=== PATIENT | male | born 1965 | race Caucasian/White ===

== ENCOUNTER → 2020-09-11 09:54 | Day surgery (SDC) | payer MEDICARE, MEDICAID, SELFPAY ==
[2020-09-11] VITALS (9 sets, daily range): BP systolic 106–125; BP diastolic 74–85; PULSE 67–73; RESP 18; TEMP 36.2–36.7; O2SAT 94–100
[2020-09-11 11:05] LABS: Hematocrit 21.4 % (42.0-52.0)
[2020-09-11 11:06] LABS: Hemoglobin 6.2 g/dL (11.7-16.6)
[2020-09-11 11:11] LABS: INR 3.18 (0.8-1.2)
[2020-09-11] MEDS: diphenhydrAMINE 25 mg Capsule PO (11:45)
[2020-09-11] MEDS: acetaminophen 325 mg Tablet 650 MG PO (11:45)
[2020-09-11] MEDS: FUROsemide 10 mg/mL SDV 2mL 20 MG IVP (14:45)
== END ==
PROVIDERS: PCP Internal Medicine; Visit Provider Internal Medicine
DX: D64.9 Anemia, unspecified (principal); I50.9 Heart failure, unspecified
CPT/HCPCS: 36415; 36430; 85014; 85018; 85610; 86850; 86900; 86920; 96374; 96375; J1940; P9016

== ENCOUNTER 2020-09-21 14:02 | Emergency (ER) | payer MEDICARE, MEDICAID, SELFPAY ==
[2020-09-21 14:03] VITALS: BP 119/79; PULSE 86; RESP 20; TEMP 37; O2SAT 97; BMI 41.5
--- NOTE | 2020-09-21 15:02 | ED_ITS ---
HPI - General Adult General: Chief complaint: General Medical Stated complaint: pelvic/ groin swelling Time Seen by Provider: 09/21/20 14:09 Source: patient Mode of arrival: ambulatory History of Present Illness: HPI narrative: Patient is a 55-year-old gentleman with a history of congestive heart failure, he has an LVAD. He recently had a hemoglobin of 6.2 about 10 days ago. He states that for the last week he has been having watery stools, describes as dirty water. Multiple episodes every day. He has lower abdominal pain, he denies any fever, nausea or vomiting. He has taken an antidiarrheal pill which has slowed down his diarrhea. Associated symptoms: Deny dyspnea, headache(s), nausea, rash, palpitations or vomiting Review of Systems General: Reports: 10 or more systems reviewed and unremarkable except in HPI and below Const: Denies: fever(s), chills or body aches Eyes: Denies: change in vision or blurry vision ENMT: Denies: throat pain, enlarged tonsils, odynophagia, hoarseness, mouth pain or swelling of lips/tongue Card: Denies: palpitations, irregular heart rhythm, edema or swelling of feet/ankles Resp: Denies: dyspnea, productive cough or non-productive cough GI: Reports: diarrhea; Denies: abdominal pain, nausea or vomiting : Denies: flank pain, dysuria, urinary frequency, urinary urgency or urinary hesitancy Musc: Denies: neck pain, back pain or extremity swelling Skin/Breast: Denies: rash, pruritus or erythema Neuro: Denies: headache(s), numbness in extremities or weakness in extremities Endo: Denies: polyuria, polydipsia or tired all the time PFSH ED PFSH: Medical History FH: cholecystectomy Heart disease High blood pressure Surgical History History of left ventricular assist device (LVAD) S/P triple vessel bypass Physical Exam Const: COMMON NORMALS: no acute distress, average body habitus, patient oriented x3, no limitations, healthy appearing, alert and well nourished HENMT: COMMON NORMALS: normocephalic, atraumatic and moist oral mucous membranes HEAD & SCALP: normocephalic and atraumatic Neck/C-Spine: COMMON NORMALS: no meningeal signs and no JVD Resp: COMMON NORMALS: normal respiratory effort, No retractions, No use of accessory muscles, clear to auscultation bilaterally and percussion normal AUSCULTATION: clear to auscultation bilaterally PERCUSSION: percussion normal Cardio: COMMON NORMALS: no JVD, regular rate, regular rhythm, S1 normal heart sound present, S2 normal heart sound present, No gallops present (Cardio), No clicks present (Cardio), No murmurs present (Cardio), No rub (Cardio) and Peripheral pulses 2+ throughout RATE: regular rate RHYTHM: regular rhythm HEART SOUNDS: S1 normal heart sound present and S2 normal heart sound present PERIPHERAL PULSES: Peripheral pulses 2+ throughout GI: COMMON NORMALS: Soft to palpation, non-tender, No hepatosplenomegaly present, no masses and no bruits INSPECTION: Yes Abdominal wall edema, Yes Anasarca and Yes abdominal distension PALPATION: Yes Soft to palpation and Yes No hepatosplenomegaly present Extremity: COMMON NORMALS: normal to inspection, full ROM, capillary refill normal, no calf tenderness and no pedal edema Neuro: COMMON NORMALS: patient oriented x3 SENSORIUM/ORIENTATION: Yes alert MENINGEAL SIGNS: Yes no meningeal signs Skin: COMMON NORMALS: no rashes or lesions noted, no wounds, turgor normal, no jaundice, no petechiae and no mottling GENERAL SKIN EXAM: no rashes or lesions noted and turgor normal Course Reevaluation(s): Reevaluation #1: Discussed his labs and imaging findings with him. Negative for acute findings. He has supratherapeutic INR and is advised to hold warfarin for 2 days before resuming. He is advised to double the dose of bumex for Time: 19:00 Reevaluation #2: Patient is unable to wait for his blanket cutting machine operator to call back. He wants to be discharged home. He said he will call tomorrow. Once again he is advised to double the dose of his Bumex for 3 days. Time: 20:24 Consultations: Consultation #1: The blanket cutting machine operator for this patient called back from [facility] in [place]. He knows this patient very well and he says he advised to double his Bumex was what he would have recommended. He will contact the patient and do a telemedicine visit with him. Time: 21:08 Vital Signs: Vital signs: Vital Signs Temperature 98.6 F 09/21/20 14:03 Pulse Rate 91 09/21/20 20:48 Respiratory Rate 18 09/21/20 20:48 Blood Pressure 152/121 09/21/20 20:48 Pulse Oximetry 100 09/21/20 20:48 MDM - General Adult MDM Narrative: Medical decision making narrative: 55-year-old gentleman with a history of congestive heart failure who presents with increased leg and scrotal swelling as well as diarrhea. Diarrhea has resolved now after he took some antidiarrheal medicines yesterday. Evaluation in the emergency department is not suggestive of an infectious cause of diarrhea. He is not in any distress, is not requiring oxygen supplementation, Has no difficulty breathing. He is advised to double the dose of his Bumex and follow-up with his blanket cutting machine operator and primary care provider. Medical Records: Attestation: I reviewed the patient's medical records. Lab Data: Attestation: I reviewed the patient's lab results. Labs: Lab Results 09/21/20 09/21/20 09/21/20 Range/Units 16:50 16:50 16:50 WBC 7.5 (4.0-10.0) 10^3/ uL RBC 3.46 L (4.1-5.3) 10^6/u L Hgb 7.6 L (11.7-16.6) g/dL Hct 26.2 L (42.0-52.0) % MCV 75.7 L (80-94) fL MCH 22.0 L (28.0-34.0) pg MCHC 29.0 L (30.0-36.0) g/dL RDW 20.0 H (12.1-15.1) % Plt Count 205 (130-400) 10^3/c mm MPV 9.5 (7.4-10.4) fL Neut % (Auto) 88.5 % Lymph % (Auto) 4.2 % Simpson % (Auto) 6.4 % Eos % (Auto) 0.3 % Baso % (Auto) 0.1 % Neut # (Auto) 6.66 (1.8-7.7) 10^3/u L Lymph # (Auto) 0.3 L (0.8-4.8) 10^3/u L Simpson # (Auto) 0.5 (0.2-0.9) 10^3/u L Eos # (Auto) 0.0 (0.0-0.8) 10^3/u L Baso # (Auto) 0.0 (0.0-0.1) 10^3/u L Nucleated RBC % (a uto) 0 % Nucleated RBCs # 0.0 /100WBC PT (12.1-14.9) SECO NDS INR (0.8-1.2) Sodium 133 L (136-145) mmol/L Potassium 3.0 L (3.5-5.1) mmol/L Chloride 98 (98-107) mmol/L Carbon Dioxide 26 (22-29) mmol/L Anion Gap 12.0 (5-19) BUN 42 H (6-20) mg/dL Creatinine 1.4 H (0.7-1.2) mg/dL GFR Calculation 53.0 L (90-130) mL/min Glucose 100 (65-115) mg/dL Calculated Osmolal ity 287 (285-295) mOsm/k g Lactate 0.7 (0.5-2.2) mmol/L Calcium 7.2 L (8.5-10.5) mg/dL Total Bilirubin 0.5 (0.15-1.2) mg/dL AST 30 (0-40) U/L ALT 15 (0-41) U/L Alkaline Phosphata se 106 (40-130) IU/L C-Reactive Protein 6.4 H (0.0-4.9) mg/L Total Protein 5.1 L (6.6-8.7) g/dL Albumin 2.3 L (3.5-5.2) g/dL Globulin 2.8 (1.3-4.6) g/dL Urine Color (Yellow) Urine Appearance (CLEAR) Urine pH (5-7) Ur Specific Gravit y (1.005-1.030) Urine Protein (Negative) Urine Glucose (UA) (Normal) Urine Ketones (Negative) Urine Blood (Negative) Urine Nitrate (Negative) Urine Bilirubin (Negative) Urine Urobilinogen (Negative) mg/dL Ur Leukocyte Yessenia ase (Negative) Urine RBC (0-2) /hpf Urine WBC (0-5) /hpf Ur Squamous Epith Cells (0-5) /hpf Amorphous Sediment Urine Bacteria (NONE) /hpf 09/21/20 09/21/20 Range/Units 16:50 17:54 WBC (4.0-10.0) 10^3/ uL RBC (4.1-5.3) 10^6/u L Hgb (11.7-16.6) g/dL Hct (42.0-52.0) % MCV (80-94) fL MCH (28.0-34.0) pg MCHC (30.0-36.0) g/dL RDW (12.1-15.1) % Plt Count (130-400) 10^3/c mm MPV (7.4-10.4) fL Neut % (Auto) % Lymph % (Auto) % Simpson % (Auto) % Eos % (Auto) % Baso % (Auto) % Neut # (Auto) (1.8-7.7) 10^3/u L Lymph # (Auto) (0.8-4.8) 10^3/u L Simpson # (Auto) (0.2-0.9) 10^3/u L Eos # (Auto) (0.0-0.8) 10^3/u L Baso # (Auto) (0.0-0.1) 10^3/u L Nucleated RBC % (a uto) % Nucleated RBCs # /100WBC PT 34.10 H (12.1-14.9) SECO NDS INR 3.22 H (0.8-1.2) Sodium (136-145) mmol/L Potassium (3.5-5.1) mmol/L Chloride (98-107) mmol/L Carbon Dioxide (22-29) mmol/L Anion Gap (5-19) BUN (6-20) mg/dL Creatinine (0.7-1.2) mg/dL GFR Calculation (90-130) mL/min Glucose (65-115) mg/dL Calculated Osmolal ity (285-295) mOsm/k g Lactate (0.5-2.2) mmol/L Calcium (8.5-10.5) mg/dL Total Bilirubin (0.15-1.2) mg/dL AST (0-40) U/L ALT (0-41) U/L Alkaline Phosphata se (40-130) IU/L C-Reactive Protein (0.0-4.9) mg/L Total Protein (6.6-8.7) g/dL Albumin (3.5-5.2) g/dL Globulin (1.3-4.6) g/dL Urine Color Yellow (Yellow) Urine Appearance Clear (CLEAR) Urine pH 7 (5-7) Ur Specific Gravit y 1.005 (1.005-1.030) Urine Protein Trace (Negative) Urine Glucose (UA) Norm (Normal) Urine Ketones Negative (Negative) Urine Blood 3+ H (Negative) Urine Nitrate Negative (Negative) Urine Bilirubin Neg (Negative) Urine Urobilinogen Norm (Negative) mg/dL Ur Leukocyte Yessenia ase Negative (Negative) Urine RBC 0-4 H (0-2) /hpf Urine WBC 0-4 H (0-5) /hpf Ur Squamous Epith Cells 0-4 H (0-5) /hpf Amorphous Sediment Not Reportable Urine Bacteria Trace (NONE) /hpf Imaging Data^: CT Abd/Pel: Attestation: I personally reviewed and interpreted this imaging study as follows: Radiologist's impression: [place] [address] CT Scan Report Signed Patient: Aniceto Ayala AUnit #: [id number] : 1965Acct#:[id number] Age/Sex: 55 / MADM Date: 09/21/20 Loc: ERRoom/Bed: Attending Dr: Ordering Provider/Ordering MD: Jose Guadalupe Cotto MD, [facility] Date of Service: 09/21/20 Procedure(s): CT abdomen pelvis [facility] [id number] Accession Number(s): [id number] Report Number: [id number] PROCEDURE INFORMATION: Exam: CT Abdomen And Pelvis Without Contrast Exam date and time: 09/21/2020 6:26 PM Age: 55 years old Clinical indication: Abdominal pain; Localized; Prior surgery; Surgery date: 6+ months; Surgery type: Gb, lvad; Patient HX: C/O lower abd pain w diarrhea and groin swelling; Additional info: Abdominal pain, diarrhea TECHNIQUE: Imaging protocol: Computed tomography of the abdomen and pelvis without contrast. Radiation optimization: All CT scans at this facility use at least one of these dose optimization techniques: automated exposure control; mA and/or kV adjustment per patient size (includes targeted exams where dose is matched to clinical indication); or iterative reconstruction. COMPARISON: No relevant prior studies available. RADIATION DOSE METRICS: Total DLP (mGy-cm): 1877.36 FINDINGS: Tubes, catheters and devices: LVAD and AICD leads noted. Lungs: No significant abnormaility demonstrated. Liver: Liver is normal in size. No focal hepatic lesion demonstrated. Liver margin is slightly irregular, suggesting possible hepatic cirrhosis. Gallbladder and bile ducts: The gallbladder is surgically absent. Pancreas: Unremarkable. No ductal dilation. Spleen: Moderate splenomegaly noted. Spleen measures 17 cm in length. No focal splenic lesion demonstrated. Adrenal glands: Unremarkable. No mass. Kidneys and ureters: Unremarkable. No hydronephrosis. Stomach and bowel: No acute gastric abnormality demonstrated. The small bowel is unremarkable as demonstrated. Mild diverticulosis of the colon; no acute diverticulitis. Appendix: No evidence of appendicitis. Intraperitoneal space: Mild to moderate ascites in the abdomen and pelvis. No pneumoperitoneum. Vasculature: Diffuse atherosclerosis of the aorta and iliac arteries. There is a stent in the proximal left renal artery. No aneurysm demonstrated. Lymph nodes: No enlarged lymph nodes. Urinary bladder: The urinary bladder is unremarkable in appearance. Reproductive: Unremarkable as visualized. Bones/joints: Unremarkable. No acute fracture. Soft tissues: Mild nonspecific subcutaneous edema noted throughout the abdomen and pelvis. CT/CT abdomen pelvis wo con [id number] IMPRESSION: 1. Liver is normal in size. No focal hepatic lesion demonstrated. Liver margin is slightly irregular, suggesting possible hepatic cirrhosis. 2. Moderate splenomegaly noted. Spleen measures 17 cm in length. No focal splenic lesion demonstrated. 3. Mild to moderate ascites in the abdomen and pelvis. This is suggestive of portal hypertension versus left ventricular failure. 4. Mild nonspecific subcutaneous edema noted throughout the abdomen and pelvis. Radiation Dose CTDIVOL = (mGy): DLP = 1877.36 (mGy-cm) Dictated By:Austyn Lee MD Signed By:Austyn Leeigned Date/Time:09/21/201853 DD/ 51 Discharge Plan Discharge Patient Disposition: Home Clinical Impression: Anasarca, Supratherapeutic INR Diarrhea Qualifiers: Diarrhea type: unspecified type Qualified Code(s): R19.7 - Diarrhea, unspecified Congestive heart failure Qualifiers: Heart failure type: unspecified Heart failure chronicity: chronic Qualified Code(s): I50.9 - Heart failure, unspecified Condition: Stable Prescriptions: Continued ferrous fumarate 325 mg (106 mg iron) tablet 325 mg PO .Six tablets daily RF: 0 sodium bicarbonate 325 mg tablet 325 mg PO BID RF: 0 quetiapine 50 mg tablet 50 mg PO BID RF: 0 amlodipine 10 mg tablet 10 mg PO ONCE RF: 0 hydralazine 50 mg tablet 50 mg PO TID RF: 0 enoxaparin [Lovenox] 120 mg/0.8 mL syringe 120 mg SUBCUT Q12H RF: 0 warfarin 1 mg tablet See Rx Instructions PO ONCE RF: 0 warfarin 4 mg tablet See Rx Instructions .ROUTE .COMPLEX RF: 0 warfarin 5 mg tablet 5 mg PO .Two RF: 0 atorvastatin 40 mg tablet 40 mg PO BEDTIME RF: 0 metoprolol succinate 25 mg capsule,sprinkle,ER 24hr 25 mg PO DAILY RF: 0 bumetanide 2 mg tablet See Rx Instructions PO BID RF: 0 allopurinol 300 mg tablet 150 mg PO ONCE RF: 0 levetiracetam [Keppra] 1,000 mg tablet 1,500 mg PO BEDTIME RF: 0 omeprazole 40 mg capsule,delayed release(DR/EC) 40 mg PO DAILY RF: 0 Fiber Gummies with Vitamin D3 2,500 mg- 500 unit tablet,chewable 1 tab PO DAILY RF: 0 hydroxyzine HCl 25 mg tablet 25 mg PO ONCE RF: 0 cardioplegic no.20 (maint 4:1) 20 mEq/810 mL (potassium) solution See Rx Instructions .ROUTE .COMPLEX RF: 0 magnesium 250 mg tablet 500 mg PO DAILY RF: 0 ondansetron HCl 4 mg tablet 4 mg PO Q8H PRN (Reason: N/V) RF: 0 levothyroxine 137 mcg capsule 137 mcg PO DAILY RF: 0 Vascepa 1 gram capsule 2 gm PO BID RF: 0 metolazone 2.5 mg tablet 2.5 mg PO .Every other day RF: 0 doxycycline hyclate 100 mg capsule 100 mg PO BID RF: 0 sertraline 100 mg tablet 100 mg PO DAILY RF: 0 pramipexole 0.125 mg tablet 0.125 mg PO DAILY RF: 0 diazepam 5 mg tablet 5 mg PO DAILY RF: 0 Discharge Orders: Discharge Order (Routine); Ordered 09/21/20 Ordered By: Jose Guadalupe Cotto Referrals: Virgie Little MD [Primary Care Provider] - 1-3 days Discharge Diet: Low Salt Discharge Activity: Resume usual activity Patient Instructions: Diarrhea - Adult, Heart Failure (ED) Activity Restrictions/Additional Instructions: Return for any new or worsening symptoms. Follow-up with your primary care provider within 3 days. Follow-up with your blanket cutting machine operator as soon as he can. Double the dose of your Bumex for the next 3 days and then return to your prior dose. Limit your water intake to no more than 1.5 L a day. Discharge Date/Time: 09/21/20 20:48 Coding Level of Care Code ED Triage Clinician for Ronitg Fwd Exam Comprehensive
[2020-09-21 15:18] VITALS: BP 113/78; PULSE 84; RESP 18; O2SAT 98
[2020-09-21 17:03] LABS: Basophils % 0.1 %; Eosinophils % 0.3 %; Hematocrit 26.2 % (42.0-52.0); Hemoglobin 7.6 g/dL (11.7-16.6); Lymphocytes # 0.3 10^3/uL (0.8-4.8); Lymphocytes % 4.2 %; Mean Corpuscular Volume 75.7 fL (80-94); Mean Platelet Volume 9.5 fL (7.4-10.4); Monocytes # 0.5 10^3/uL (0.2-0.9); Monocytes % 6.4 %; Neutrophils # 6.66 10^3/uL (1.8-7.7); Neutrophils % 88.5 %; Nucleated Red Blood Cells % 0 %; Platelet Count 205 10^3/cmm (130-400); Red Blood Count 3.46 10^6/uL (4.1-5.3); White Blood Count 7.5 10^3/uL (4.0-10.0)
[2020-09-21 17:21] LABS: Alanine Aminotransferase 15 U/L (0-41); Albumin Level 2.3 g/dL (3.5-5.2); Alkaline Phosphatase 106 IU/L (40-130); Aspartate Amino Transferase 30 U/L (0-40); Blood Urea Nitrogen 42 mg/dL (6-20); C Reactive Protein 6.4 mg/L (0.0-4.9); Calcium 7.2 mg/dL (8.5-10.5); Carbon Dioxide 26 mmol/L (22-29); Chloride 98 mmol/L (98-107); Globulin 2.8 g/dL (1.3-4.6); Glucose 100 mg/dL (65-115); Lactate (Lactic Acid level) 0.7 mmol/L (0.5-2.2); Osmolality Calculated 287 mOsm/kg (285-295); Sodium 133 mmol/L (136-145); Total Bilirubin 0.5 mg/dL (0.15-1.2); Total Protein 5.1 g/dL (6.6-8.7)
--- NOTE | 2020-09-21 17:46 | CTR_ITS ---
PROCEDURE INFORMATION: Exam: CT Abdomen And Pelvis Without Contrast Exam date and time: 09/21/2020 6:26 PM Age: 55 years old Clinical indication: Abdominal pain; Localized; Prior surgery; Surgery date: 6+ months; Surgery type: Gb, lvad; Patient HX: C/O lower abd pain w diarrhea and groin swelling; Additional info: Abdominal pain, diarrhea TECHNIQUE: Imaging protocol: Computed tomography of the abdomen and pelvis without contrast. Radiation optimization: All CT scans at this facility use at least one of these dose optimization techniques: automated exposure control; mA and/or kV adjustment per patient size (includes targeted exams where dose is matched to clinical indication); or iterative reconstruction. COMPARISON: No relevant prior studies available. RADIATION DOSE METRICS: Total DLP (mGy-cm): 1877.36 FINDINGS: Tubes, catheters and devices: LVAD and AICD leads noted. Lungs: No significant abnormaility demonstrated. Liver: Liver is normal in size. No focal hepatic lesion demonstrated. Liver margin is slightly irregular, suggesting possible hepatic cirrhosis. Gallbladder and bile ducts: The gallbladder is surgically absent. Pancreas: Unremarkable. No ductal dilation. Spleen: Moderate splenomegaly noted. Spleen measures 17 cm in length. No focal splenic lesion demonstrated. Adrenal glands: Unremarkable. No mass. Kidneys and ureters: Unremarkable. No hydronephrosis. Stomach and bowel: No acute gastric abnormality demonstrated. The small bowel is unremarkable as demonstrated. Mild diverticulosis of the colon; no acute diverticulitis. Appendix: No evidence of appendicitis. Intraperitoneal space: Mild to moderate ascites in the abdomen and pelvis. No pneumoperitoneum. Vasculature: Diffuse atherosclerosis of the aorta and iliac arteries. There is a stent in the proximal left renal artery. No aneurysm demonstrated. Lymph nodes: No enlarged lymph nodes. Urinary bladder: The urinary bladder is unremarkable in appearance. Reproductive: Unremarkable as visualized. Bones/joints: Unremarkable. No acute fracture. Soft tissues: Mild nonspecific subcutaneous edema noted throughout the abdomen and pelvis. CT/CT abdomen pelvis wo con [id number] IMPRESSION: 1. Liver is normal in size. No focal hepatic lesion demonstrated. Liver margin is slightly irregular, suggesting possible hepatic cirrhosis. 2. Moderate splenomegaly noted. Spleen measures 17 cm in length. No focal splenic lesion demonstrated. 3. Mild to moderate ascites in the abdomen and pelvis. This is suggestive of portal hypertension versus left ventricular failure. 4. Mild nonspecific subcutaneous edema noted throughout the abdomen and pelvis. Radiation Dose CTDIVOL = (mGy): DLP = 1877.36 (mGy-cm)
[2020-09-21 17:58] LABS: INR 3.22 (0.8-1.2)
[2020-09-21 18:39] VITALS: BP 130/93
[2020-09-21 19:04] LABS: Add Urine Microscopic? YES; Bilirubin Urine Neg (Negative); Blood Urine 3+ (Negative); Glucose Urine UA Norm (Normal); Ketones Urine Negative (Negative); Leukocyte Esterase Urine Negative (Negative); Nitrate Urine Negative (Negative); Protein Urine Trace (Negative); Specific Gravity, Urine 1.005 (1.005-1.030); Urine Appearance Clear (CLEAR); Urine Color Yellow (Yellow); Urobilinogen Urine Norm (Negative); pH Urine 7 (5-7)
[2020-09-21 19:18] LABS: Add Urine Culture? No; Bacteria Urine TRACE /hpf; RBC Urine 0-4 /hpf (0-2); Squamous Epithelial Cell Urine 0-4 /hpf (0-5); WBC Urine 0-4 /hpf (0-5)
[2020-09-21 19:30] VITALS: BP 104/78; PULSE 78; RESP 17; O2SAT 98
--- NOTE | 2020-09-21 20:21 | PC.NURSE ---
pt requesting status on D/C. Per Dr Cotto, waiting on return call from sterile processing manager as pt requested and for stool sample. Pt states he will be unable to provide stool sample due to self adm of OTC anti diarrheal medication and wishes to cancel call to sterile processing manager. notified. Instrucitons given to pt on stool sample collection
[2020-09-21 20:48] VITALS: BP 152/121; PULSE 91; RESP 18; O2SAT 100
== END 2020-09-21 20:48 | disposition home or self-care (01) ==
PROVIDERS: Emergency Provider Family Medicine; PCP Internal Medicine
DX: R60.1 Generalized edema (principal); R19.7 Diarrhea, unspecified; I50.9 Heart failure, unspecified; Z79.01 Long term (current) use of anticoagulants
CPT/HCPCS: 12345; 74176; 80053; 81001; 83605; 85025; 85610; 86140; 99283

== ENCOUNTER 2020-09-22 14:04 | Emergency (ER) | payer MEDICARE, MEDICAID, SELFPAY ==
[2020-09-22 14:05] VITALS: PULSE 84; RESP 20; TEMP 36.8; O2SAT 97; BMI 42.1
--- NOTE | 2020-09-22 14:28 | XRR_ITS ---
PROCEDURE INFORMATION: Exam: XR Chest, 1 View Exam date and time: 09/22/2020 2:57 PM Age: 55 years old Clinical indication: Dyspnea; Additional info: Fluid retention TECHNIQUE: Imaging protocol: XR of the chest Views: 1 view. COMPARISON: CR Chest 1 [place] [id number] 05/13/2018 11:22 AM FINDINGS: Tubes, catheters and devices: Two lead pacemaker device. Lungs: There are hazy bibasilar opacities similar to the prior study. There are pulmonary parenchymal calcifications consistent with remote granulomatous organism exposure. Pleural space: Unremarkable. No pleural effusion. No pneumothorax. Heart/Mediastinum: Cardiomegaly. Bones/joints: There are posterior sternotomy changes and postoperative changes overlying the mediastinum. XR/XR chest 1V portable [id number] IMPRESSION: 1. Cardiomegaly. 2. Hazy bibasilar opacities are similar to the prior study. Differential includes atelectasis and pneumonia.
--- NOTE | 2020-09-22 14:29 | ECG_ITS ---
[facility] Test Date: 2020-09-22 Pat Name: Aniceto Ayala Department: Room: Gender: Male Slot Manager: : 1965 Requested By: Milan Quintero Order Number: [id number] Aneta MD: AISHA LEYVA Measurements Intervals [place] Rate: 37 P: 88 ID: [id number] QRS: -25 QRSD: 140 T: 0 QT: 250 QTc: 196 Interpretive Statements SINUS BRADYCARDIA INTRAVENTRICULAR CONDUCTION DELAY [130+ ms QRS DURATION] POSSIBLE ANTERIOR MYOCARDIAL INFARCTION , OF INDETERMINATE AGE [30 ms Q WAVE IN V3/V4, OR R < 0.2 mV IN V4] CRITICAL TEST RESULT Compared to ECG 05/13/2018 11:29:06 Intraventricular conduction delay now present Atrial-paced complex(es) or rhythm no longer present ST (T wave) deviation no longer present Myocardial infarct finding still present Electronically Signed On 09-22-2020 18:26:44 CDT by AISHA LEYVA [id number]
--- NOTE | 2020-09-22 14:46 | ED_ITS ---
HPI - General Adult General: Chief complaint: General Medical Stated complaint: WATER RETENTION Time Seen by Provider: 09/22/20 14:08 History of Present Illness: HPI narrative: 55-year-old male with a history of congestive heart failure. He has an LVAD device. He was here yesterday with a supratherapeutic INR, and swelling. He has back because his scrotum is very swollen, he is very uncomfortable, and having trouble breathing. He denies any overt chest pain. The physician yesterday spoke to his electrical assemblies supervisor. They agreed upon doubling his Bumex dose for the next 3 days. He presents again despite this. Onset (ago): day(s) Location: genitals and lower extremity Radiation: non-radiation Severity: moderate Quality: burning and aching Pain Consistency: constant Relieving factors: none Exacerbating factors: movement Associated symptoms: Reports dyspnea, nausea, rash, short of breath and other (He had a complaint of diarrhea yesterday. This is resolved.); Deny chest pain, confusion, cough, diaphoresis, fevers/chills or vomiting Review of Systems Const: Denies: diaphoresis Eyes: Denies: change in vision ENMT: Denies: odynophagia, swelling of lips/tongue, bleeding gums, epistaxis or sinus pain Card: Denies: chest pain Resp: Reports: dyspnea GI: Reports: nausea; Denies: abdominal pain, vomiting, hematochezia or melena : Reports: difficulty urinating; Denies: dysuria, urinary frequency, urinary urgency or hematuria Musc: Reports: back pain; Denies: neck pain or joint warmth Skin/Breast: Reports: rash and erythema; Denies: pruritus Neuro: Denies: confusion Psych: Denies: anxiety PFSH ED PFSH: Medical History (Updated 09/23/20 @ 01:56 CDT by Milan Sanchez DO) FH: cholecystectomy Heart disease High blood pressure Surgical History (Reviewed 09/21/20 @ 15:06 by Jose Guadalupe Cotto MD, [facility] [place]) History of left ventricular assist device (LVAD) S/P triple vessel bypass Physical Exam Const: GENERAL APPEARANCE: well developed ORIENTATION/CONSCIOUSNESS: Yes oriented to person, Yes oriented to place and Yes oriented to time HENMT: COMMON NORMALS: normocephalic, external ears normal and Normal external nose present HEAD & SCALP: normocephalic FACE & SINUS: normal facial exam NOSE: Normal external nose present and No nasal discharge present EXTERNAL EAR: Yes external ears normal Eye: COMMON NORMALS: Equal, round and reactive pupils present, EOMs intact bilaterally and conjunctivae normal CONJUNCTIVA: Yes conjunctivae normal PUPIL: Yes Equal, round and reactive pupils present Neck/C-Spine: GENERAL: No tracheal deviation Chest: COMMONS NORMALS: normal inspection of the chest CHEST: No tenderness Resp: COMMON NORMALS: negative for clear to auscultation bilaterally EFFORT & INSPECTION: No tachypneic, No respiratory distress, No retractions, No uses accessory muscles and No tracheal deviation AUSCULTATION: not clear to auscultation bilaterally, no rhonchi, no wheezes and diminished lung sounds Cardio: COMMON NORMALS: regular rate and regular rhythm RATE: regular rate RHYTHM: regular rhythm HEART SOUNDS: no murmurs and Other heart sounds present (LVAD) PERIPHERAL PULSES: radial pulses present GI: INSPECTION: No abdominal distension AUSCULTATION: No Hyperactive bowel sounds present and No Hypoactive bowel sounds present PALPATION: No Guarding due to palpation present (GI) and No Rigid due to palpation PERCUSSION: no dullness to percussion and no tympanic to percussion Neuro: SENSORIUM/ORIENTATION: Yes oriented to person, Yes oriented to place and Yes oriented to time Psych: COMMON NORMALS: mental status grossly normal Skin: COMMON NORMALS: no rashes or lesions noted GENERAL SKIN EXAM: no rashes or lesions noted Course Vital Signs: Vital signs: Vital Signs Temperature 98.2 F 09/22/20 14:05 Pulse Rate 70 09/22/20 19:15 Respiratory Rate 18 09/22/20 19:15 Blood Pressure 113/89 09/22/20 19:15 Pulse Oximetry 97 09/22/20 19:15 MDM - General Adult MDM Narrative: Medical decision making narrative: 55-year-old male with end- stage congestive heart failure on LVAD. He presents with significant swelling to the upper and lower extremities as well as scrotum, and worsening shortness of breath. He is having trouble getting around his hemoglobin is down to 7.1. His creatinine is 1.4. His potassium is 3.2. He has been given 80 mg of Lasix IV, as well as 1 mg of Bumex IV, and is put out close to 1500 mL of urine. A Torres was placed due to potential obstruction from the scrotal swelling etc. We were able to obtain accurate output from this. Spoke with his electrical assemblies supervisor. With his hemoglobin being down more, him having trouble getting around at home, his shortness of breath and the amount of swelling he has, he believes admission is necessary. We are not able to care for LVAD patients in this facility. He will be transferred to his electrical assemblies supervisor in [place] where the LVAD team will see him. Lab Data: Labs: Lab Results 09/22/20 09/22/20 09/22/20 Range/Units 14:32 14:32 14:32 WBC 5.3 (4.0-10.0) 10^3/ uL RBC 3.19 L (4.1-5.3) 10^6/u L Hgb 7.1 L (11.7-16.6) g/dL Hct 24.7 L (42.0-52.0) % MCV 77.4 L (80-94) fL MCH 22.3 L (28.0-34.0) pg MCHC 28.7 L (30.0-36.0) g/dL RDW 20.0 H (12.1-15.1) % Plt Count 158 (130-400) 10^3/c mm MPV 9.6 (7.4-10.4) fL Neut % (Auto) 88.2 % Lymph % (Auto) 0.2 % Brooks % (Auto) 10.1 % Eos % (Auto) 0.4 % Baso % (Auto) 0.2 % Neut # (Auto) 4.65 (1.8-7.7) 10^3/u L Lymph # (Auto) 0.0 L (0.8-4.8) 10^3/u L Brooks # (Auto) 0.5 (0.2-0.9) 10^3/u L Eos # (Auto) 0.0 (0.0-0.8) 10^3/u L Baso # (Auto) 0.0 (0.0-0.1) 10^3/u L Nucleated RBC % (a uto) 0 % Nucleated RBCs # 0.0 /100WBC PT 38.10 H (12.1-14.9) SECO NDS INR 3.69 H (0.8-1.2) Sodium 135 L (136-145) mmol/L Potassium 3.2 L (3.5-5.1) mmol/L Chloride 100 (98-107) mmol/L Carbon Dioxide 24 (22-29) mmol/L Anion Gap 14.2 (5-19) BUN 40 H (6-20) mg/dL Creatinine 1.4 H (0.7-1.2) mg/dL GFR Calculation 53.0 L (90-130) mL/min Glucose 100 (65-115) mg/dL Calculated Osmolal ity 290 (285-295) mOsm/k g Lactate (0.5-2.2) mmol/L Calcium 7.4 L (8.5-10.5) mg/dL Phosphorus 3.2 (2.5-4.5) mg/dL Magnesium 1.2 L (1.7-2.3) mg/dL Total Bilirubin 0.5 (0.15-1.2) mg/dL AST 27 (0-40) U/L ALT 14 (0-41) U/L Alkaline Phosphata se 99 (40-130) IU/L Ammonia (16-60) umol/L Creatine Kinase 90 (39-308) U/L Troponin T Baselin e (0-15) ng/L Troponin T 120 Min [place] (0-15) ng/L Delta Troponin T (0-10) ABS# C-Reactive Protein 10.7 H (0.0-4.9) mg/L NT-Pro-B Natriuret Pep 8423 H (0-125) pg/mL Total Protein 4.7 L (6.6-8.7) g/dL Albumin 2.2 L (3.5-5.2) g/dL Globulin 2.5 (1.3-4.6) g/dL Procalcitonin 0.33 (0-0.5) ng/mL Urine Color (Yellow) Urine Appearance (CLEAR) Urine pH (5-7) Ur Specific Gravit y (1.005-1.030) Urine Protein (Negative) Urine Glucose (UA) (Normal) Urine Ketones (Negative) Urine Blood (Negative) Urine Nitrate (Negative) Urine Bilirubin (Negative) Urine Urobilinogen (Negative) mg/dL Ur Leukocyte Yessenia ase (Negative) Ethyl Alcohol < 10 (0-10) mg/dL 09/22/20 09/22/20 09/22/20 Range/Units 14:32 14:32 14:32 WBC (4.0-10.0) 10^3/ uL RBC (4.1-5.3) 10^6/u L Hgb (11.7-16.6) g/dL Hct (42.0-52.0) % MCV (80-94) fL MCH (28.0-34.0) pg MCHC (30.0-36.0) g/dL RDW (12.1-15.1) % Plt Count (130-400) 10^3/c mm MPV (7.4-10.4) fL Neut % (Auto) % Lymph % (Auto) % Brooks % (Auto) % Eos % (Auto) % Baso % (Auto) % Neut # (Auto) (1.8-7.7) 10^3/u L Lymph # (Auto) (0.8-4.8) 10^3/u L Brooks # (Auto) (0.2-0.9) 10^3/u L Eos # (Auto) (0.0-0.8) 10^3/u L Baso # (Auto) (0.0-0.1) 10^3/u L Nucleated RBC % (a uto) % Nucleated RBCs # /100WBC PT (12.1-14.9) SECO NDS INR (0.8-1.2) Sodium (136-145) mmol/L Potassium (3.5-5.1) mmol/L Chloride (98-107) mmol/L Carbon Dioxide (22-29) mmol/L Anion Gap (5-19) BUN (6-20) mg/dL Creatinine (0.7-1.2) mg/dL GFR Calculation (90-130) mL/min Glucose (65-115) mg/dL Calculated Osmolal ity (285-295) mOsm/k g Lactate 0.9 (0.5-2.2) mmol/L Calcium (8.5-10.5) mg/dL Phosphorus (2.5-4.5) mg/dL Magnesium (1.7-2.3) mg/dL Total Bilirubin (0.15-1.2) mg/dL AST (0-40) U/L ALT (0-41) U/L Alkaline Phosphata se (40-130) IU/L Ammonia 21 (16-60) umol/L Creatine Kinase (39-308) U/L Troponin T Baselin e 38 H (0-15) ng/L Troponin T 120 Min [place] (0-15) ng/L Delta Troponin T (0-10) ABS# C-Reactive Protein (0.0-4.9) mg/L NT-Pro-B Natriuret Pep (0-125) pg/mL Total Protein (6.6-8.7) g/dL Albumin (3.5-5.2) g/dL Globulin (1.3-4.6) g/dL Procalcitonin (0-0.5) ng/mL Urine Color (Yellow) Urine Appearance (CLEAR) Urine pH (5-7) Ur Specific Gravit y (1.005-1.030) Urine Protein (Negative) Urine Glucose (UA) (Normal) Urine Ketones (Negative) Urine Blood (Negative) Urine Nitrate (Negative) Urine Bilirubin (Negative) Urine Urobilinogen (Negative) mg/dL Ur Leukocyte Yessenia ase (Negative) Ethyl Alcohol (0-10) mg/dL 09/22/20 09/22/20 Range/Units 16:22 16:23 WBC (4.0-10.0) 10^3/ uL RBC (4.1-5.3) 10^6/u L Hgb (11.7-16.6) g/dL Hct (42.0-52.0) % MCV (80-94) fL MCH (28.0-34.0) pg MCHC (30.0-36.0) g/dL RDW (12.1-15.1) % Plt Count (130-400) 10^3/c mm MPV (7.4-10.4) fL Neut % (Auto) % Lymph % (Auto) % Brooks % (Auto) % Eos % (Auto) % Baso % (Auto) % Neut # (Auto) (1.8-7.7) 10^3/u L Lymph # (Auto) (0.8-4.8) 10^3/u L Brooks # (Auto) (0.2-0.9) 10^3/u L Eos # (Auto) (0.0-0.8) 10^3/u L Baso # (Auto) (0.0-0.1) 10^3/u L Nucleated RBC % (a uto) % Nucleated RBCs # /100WBC PT (12.1-14.9) SECO NDS INR (0.8-1.2) Sodium (136-145) mmol/L Potassium (3.5-5.1) mmol/L Chloride (98-107) mmol/L Carbon Dioxide (22-29) mmol/L Anion Gap (5-19) BUN (6-20) mg/dL Creatinine (0.7-1.2) mg/dL GFR Calculation (90-130) mL/min Glucose (65-115) mg/dL Calculated Osmolal ity (285-295) mOsm/k g Lactate (0.5-2.2) mmol/L Calcium (8.5-10.5) mg/dL Phosphorus (2.5-4.5) mg/dL Magnesium (1.7-2.3) mg/dL Total Bilirubin (0.15-1.2) mg/dL AST (0-40) U/L ALT (0-41) U/L Alkaline Phosphata se (40-130) IU/L Ammonia (16-60) umol/L Creatine Kinase (39-308) U/L Troponin T Baselin e (0-15) ng/L Troponin T 120 Min [place] 34.22 H (0-15) ng/L Delta Troponin T -3.78 L (0-10) ABS# C-Reactive Protein (0.0-4.9) mg/L NT-Pro-B Natriuret Pep (0-125) pg/mL Total Protein (6.6-8.7) g/dL Albumin (3.5-5.2) g/dL Globulin (1.3-4.6) g/dL Procalcitonin (0-0.5) ng/mL Urine Color Yellow (Yellow) Urine Appearance Clear (CLEAR) Urine pH 7 (5-7) Ur Specific Gravit y 1.005 (1.005-1.030) Urine Protein Neg (Negative) Urine Glucose (UA) Norm (Normal) Urine Ketones Negative (Negative) Urine Blood Neg (Negative) Urine Nitrate Negative (Negative) Urine Bilirubin Neg (Negative) Urine Urobilinogen Norm (Negative) mg/dL Ur Leukocyte Yessenia ase Negative (Negative) Ethyl Alcohol (0-10) mg/dL Discharge Plan Discharge Patient Disposition: Xfer Other Clinical Impression: Congestive heart failure Qualifiers: Heart failure type: systolic Heart failure chronicity: acute Qualified Code(s): I50.21 - Acute systolic (congestive) heart failure Anemia Qualifiers: Anemia type: due to chronic kidney disease Referrals: Virgie Little MD [Primary Care Provider] - Discharge Date/Time: 09/22/20 19:47 Coding Level of Care Code ED Wallpaperer Helper for Chg Fwd Exam Comprehensive
[2020-09-22 14:58] LABS: Basophils % 0.2 %; Eosinophils % 0.4 %; Hematocrit 24.7 % (42.0-52.0); Hemoglobin 7.1 g/dL (11.7-16.6); Lymphocytes % 0.2 %; Mean Corpuscular HGB Conc 28.7 g/dL (30.0-36.0); Mean Corpuscular Hemoglobin 22.3 pg (28.0-34.0); Mean Corpuscular Volume 77.4 fL (80-94); Mean Platelet Volume 9.6 fL (7.4-10.4); Monocytes # 0.5 10^3/uL (0.2-0.9); Monocytes % 10.1 %; Neutrophils # 4.65 10^3/uL (1.8-7.7); Neutrophils % 88.2 %; Nucleated Red Blood Cells % 0 %; Platelet Count 158 10^3/cmm (130-400); Red Blood Count 3.19 10^6/uL (4.1-5.3); White Blood Count 5.3 10^3/uL (4.0-10.0)
[2020-09-22 15:04] LABS: INR 3.69 (0.8-1.2)
[2020-09-22] MEDS: FUROsemide 10 mg/mL SDV 10mL 80 MG IVP (15:06)
[2020-09-22] MEDS: bumetanide 0.25 mg/mL SDV 10 mL 1 MG IV (15:06)
[2020-09-22 15:10] LABS: Lactate (Lactic Acid level) 0.9 mmol/L (0.5-2.2)
[2020-09-22 15:21] LABS: NT Pro B Type Natriuretic Pept 8423 pg/mL (0-125); Procalcitonin 0.33 ng/mL (0-0.5)
[2020-09-22 15:22] LABS: Ammonia 21 umol/L (16-60)
[2020-09-22 15:32] LABS: Alanine Aminotransferase 14 U/L (0-41); Albumin Level 2.2 g/dL (3.5-5.2); Alkaline Phosphatase 99 IU/L (40-130); Anion Gap 14.2 (5-19); Aspartate Amino Transferase 27 U/L (0-40); Blood Urea Nitrogen 40 mg/dL (6-20); C Reactive Protein 10.7 mg/L (0.0-4.9); Calcium 7.4 mg/dL (8.5-10.5); Carbon Dioxide 24 mmol/L (22-29); Chloride 100 mmol/L (98-107); Creatine Phosphokinase 90 U/L (39-308); Globulin 2.5 g/dL (1.3-4.6); Glucose 100 mg/dL (65-115); Magnesium 1.2 mg/dL (1.7-2.3); Osmolality Calculated 290 mOsm/kg (285-295); Phosphorus 3.2 mg/dL (2.5-4.5); Potassium 3.2 mmol/L (3.5-5.1); Sodium 135 mmol/L (136-145); Total Bilirubin 0.5 mg/dL (0.15-1.2); Total Protein 4.7 g/dL (6.6-8.7)
[2020-09-22 15:54] LABS: Alcohol Level < 10 mg/dL (0-10)
[2020-09-22 16:24] LABS: Troponin(5th) Baseline 38 ng/L (0-15)
[2020-09-22 16:29] LABS: Add Urine Microscopic? NO
--- NOTE | 2020-09-22 16:29 | ECG_ITS ---
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
[2020-09-22 16:41] LABS: Bilirubin Urine Neg (Negative); Blood Urine Neg (Negative); Glucose Urine UA Norm (Normal); Ketones Urine Negative (Negative); Leukocyte Esterase Urine Negative (Negative); Nitrate Urine Negative (Negative); Protein Urine Neg (Negative); Specific Gravity, Urine 1.005 (1.005-1.030); Urine Appearance Clear (CLEAR); Urine Color Yellow (Yellow); Urobilinogen Urine Norm (Negative); pH Urine 7 (5-7)
[2020-09-22 16:48] LABS: Troponin 5 2HR 34.22 ng/L (0-15)
[2020-09-22 16:51] LABS: Troponin 5 2HR Delta -3.78 ABS# (0-10)
[2020-09-22] MEDS: potassium chloride ER 10 mEq Tablet 40 MEQ PO (17:21)
[2020-09-22 17:22] VITALS: BP 111/81; PULSE 72; RESP 15; O2SAT 99
[2020-09-22 18:00] VITALS: BP 123/92; PULSE 77; RESP 16; O2SAT 100
[2020-09-22 18:04] VITALS: BP 113/83; PULSE 75; RESP 15; O2SAT 95
--- NOTE | 2020-09-22 18:43 | PC.NURSE ---
Report called to [phone] E[facility]
[2020-09-22 18:56] VITALS: BP 113/83; PULSE 71; RESP 17; O2SAT 98
[2020-09-22 19:15] VITALS: BP 113/89; PULSE 70; RESP 18; O2SAT 97
== END 2020-09-22 19:47 | disposition other institution (70) ==
LOC: ER 14:44
PROVIDERS: Emergency Provider Emergency Medicine; PCP Internal Medicine
DX: I13.0 Hypertensive heart and chronic kidney disease with heart failure and stage 1 through stage 4 chronic kidney disease, or unspecified chronic kidney disease (principal); N18.9 Chronic kidney disease, unspecified; D63.1 Anemia in chronic kidney disease; I50.21 Acute systolic (congestive) heart failure
CPT/HCPCS: 12345; 71045; 80053; 80307; 81003; 82140; 82550; 83605; 83735; 83880; 84100; 84145; 84484; 85025; 85610; 86140; 93005; 96374; 96375; 99283; 99285; J1940; J3490

== ENCOUNTER 2020-10-15 16:48 | Outpatient (CLI) | payer MEDICARE, MEDICAID, SELFPAY ==
[2020-10-15 17:17] LABS: Basophils % 0.2 %; Eosinophils % 0.3 %; Lymphocytes # 0.4 10^3/uL (0.8-4.8); Lymphocytes % 3.9 %; Mean Corpuscular HGB Conc 30.9 g/dL (30.0-36.0); Mean Corpuscular Hemoglobin 25.9 pg (28.0-34.0); Mean Corpuscular Volume 83.8 fL (80-94); Mean Platelet Volume 10.5 fL (7.4-10.4); Monocytes # 0.9 10^3/uL (0.2-0.9); Monocytes % 8.5 %; Neutrophils # 9.17 10^3/uL (1.8-7.7); Neutrophils % 83.4 %; Nucleated Red Blood Cells % 0.3 %; Platelet Count 319 10^3/cmm (130-400); Red Blood Count 2.28 10^6/uL (4.1-5.3); Red Cell Distribution Width 24.7 % (12.1-15.1)
[2020-10-15 17:33] LABS: Hematocrit 19.1 % (42.0-52.0); Hemoglobin 5.9 g/dL (11.7-16.6)
[2020-10-15 17:39] LABS: INR 1.67 (0.8-1.2)
[2020-10-15 18:41] LABS: Alanine Aminotransferase 19 U/L (0-41); Albumin Level 2.9 g/dL (3.5-5.2); Alkaline Phosphatase 118 IU/L (40-130); Anion Gap 19.5 (5-19); Aspartate Amino Transferase 23 U/L (0-40); Calcium 8.4 mg/dL (8.5-10.5); Carbon Dioxide 22 mmol/L (22-29); Chloride 91 mmol/L (98-107); Globulin 2.4 g/dL (1.3-4.6); Glomerular Filtration Rate 37.3 mL/min (90-130); Glucose 94 mg/dL (65-115); Osmolality Calculated 294 mOsm/kg (285-295); Potassium 4.5 mmol/L (3.5-5.1); Sodium 128 mmol/L (136-145); Total Bilirubin 0.3 mg/dL (0.15-1.2); Total Protein 5.3 g/dL (6.6-8.7)
[2020-10-16 09:31] LABS: Blood Urea Nitrogen 91 mg/dL (6-20)
== END 2020-10-15 16:49 | disposition home or self-care (01) ==
PROVIDERS: PCP Internal Medicine; Visit Provider Family Medicine
DX: I50.9 Heart failure, unspecified (principal); N18.4 Chronic kidney disease, stage 4 (severe)
CPT/HCPCS: 80053; 85025; 85610

== ENCOUNTER 2020-10-15 19:19 | Emergency (ER) | payer MEDICARE, MEDICAID, SELFPAY ==
[2020-10-15] VITALS (36 sets, daily range): BP systolic 90–112; BP diastolic 63–81; PULSE 70–90; RESP 15–27; TEMP 36.3–36.8; O2SAT 95–100; BMI 29.9
--- NOTE | 2020-10-15 19:30 | XR_ITS ---
WS: [id number] XR chest 1V portable [id number] REASON FOR EXAM: Weakness FINDINGS: The chest is unchanged compared to 09/22/2020. Pacemaker in place over the left chest with leads to the right HM and right ventricular apex. The hea rt is at the upper limits of normal in size. There is been previous coronary artery bypass surgery. Calcified granulomatous disease is seen in both hemithoraces. No active pulmonary parenchymal or pleu ral disease is identified. Previous osteotomy of the right humeral head and glenoid. XR/XR chest 1V portable [id number] IMPRESSION: No acute chest abnormality.
--- NOTE | 2020-10-15 19:31 | ECG_ITS ---
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
--- NOTE | 2020-10-15 19:55 | ED_ITS ---
HPI - Recheck/Abnormal Lab/Rx General: Chief Complaint: Recheck/Abnormal Lab/Rx Stated Complaint: LOW BLOOD LEVEL Time Seen by Provider: 10/15/20 19:27 Source: patient Limitations: no limitations History of Present Illness: HPI narrative: Mr. Ayala is a very nice 55-year-old male who comes in complaining of generalized weakness and decreased appetite. Of note the patient has an LVAD and is followed at [facility] in [place] for this. Patient upon further questioning does admit to having some black tarry stools which he has had in the past. Patient is on warfarin for his LVAD. Patient had outpatient labs today and was told that he was anemic and to come to the ER for evaluation. Patient currently at rest states he feels fine and has no complaints. Review of Systems Const: Denies: fever(s), chills, body aches, fatigue, malaise or diaphoresis Eyes: Denies: change in vision, blurry vision, photophobia, eye discomfort, eye discharge, eye redness or yellow eyes ENMT: Denies: throat pain, odynophagia, hoarseness, swelling of lips/tongue, ear or mastoid pain, ear discharge, change in hearing or nasal discharge Card: Denies: chest pain, palpitations, irregular heart rhythm, edema, lightheadedness, syncope, pre-syncope, dyspnea on exertion or orthopnea Resp: Denies: dyspnea, productive cough, non-productive cough, wheezing, hemoptysis or chest congestion GI: Denies: abdominal pain, nausea, vomiting, hematemesis, coffee ground emesis, heartburn, diarrhea, constipation, GI cramping, hematochezia or melena : Denies: flank pain, dysuria, urinary frequency, urinary urgency or hematuria Musc: Denies: neck pain, back pain, extremity pain, extremity swelling, joint pain, joint swelling, joint redness, joint warmth or joint stiffness Skin/Breast: Denies: rash, pruritus, erythema, skin pain or skin tenderness Neuro: Denies: headache(s), numbness in extremities, weakness in extremities, sensory changes, lack of coordination, difficulty walking, dizziness, vertigo, confusion, Slurred speech present or seizure-like activity Cuong/Lymph: Denies: easy bruising, easy bleeding, petechiae, purpura or enlarged lymph nodes All/Imm: Denies: urticaria, throat swelling, tongue swelling, facial swelling or acute wheezing PFSH ED PFSH: Medical History (Updated 10/15/20 @ 20:06 by Mary Barron) FH: cholecystectomy Heart disease High blood pressure Surgical History History of left ventricular assist device (LVAD) S/P triple vessel bypass Physical Exam Const: COMMON NORMALS: no acute distress, patient oriented x3, no limitations and alert GENERAL APPEARANCE: cooperative HENMT: COMMON NORMALS: normocephalic, atraumatic, external ears normal, EAC's normal and Normal external nose present HEAD & SCALP: normal to inspection, normocephalic and atraumatic FACE & SINUS: normal facial exam and face symmetric NOSE: Normal external nose present and Normal nares present EXTERNAL EAR: Yes external ears normal EXTERNAL AUDITORY CANAL: EAC's normal MOUTH: Normal oral and palatal mucosa present, lip normal and tongue normal Eye: COMMON NORMALS: Equal, round and reactive pupils present and conjunctivae normal GENERAL EYE: appearance normal, both eyes and all related structures ALIGNMENT: Yes alignment normal PERIORBITAL: periorbital findings normal EYELID: eyelids normal CONJUNCTIVA: Yes conjunctivae normal SCLERA: sclerae normal PUPIL: Yes Equal, round and reactive pupils present Neck/C-Spine: COMMON NORMALS: full ROM, no lymphadenopathy, supple, no meningeal signs and no JVD GENERAL: Yes normal visual inspection and Yes trachea midline Chest: COMMONS NORMALS: normal inspection of the chest and normal palpation of entire chest wall Resp: COMMON NORMALS: normal respiratory effort, No retractions, No use of accessory muscles and clear to auscultation bilaterally EFFORT & INSPECTION: Yes able to speak in complete sentences and Yes symmetric chest movement AUSCULTATION: clear to auscultation bilaterally, no crackles, no rales, no rhonchi and no wheezes Cardio: COMMON NORMALS: no JVD HEART SOUNDS: Other heart sounds present (Constant mechanical hum auscultated) GI: COMMON NORMALS: Soft to palpation and No hepatosplenomegaly present PALPATION: Yes Soft to palpation, No Tenderness to palpation present (GI), No Guarding due to palpation present (GI), No Rigid due to palpation, Yes No hepatosplenomegaly present, No Hernia present, No Palpable mass present and No Pulsatile mass present : COMMON NORMALS: Yes no CVA tenderness BLADDER/KIDNEY EXAM: Yes no CVA tenderness Back/Pelvis: COMMON NORMALS: no CVA tenderness, thoracic and lumbar spine normal to inspection, no thoracic nor lumbar tenderness and thoraco-lumbar ROM normal Extremity: COMMON NORMALS: normal to inspection, full ROM, capillary refill normal, no joint enlargement, no clubbing, cyanosis or edema and no calf tenderness Neuro: COMMON NORMALS: patient oriented x3, CN's II-XII intact bilaterally, moves all extremities, no focal motor deficits and no sensory deficits noted SENSORIUM/ORIENTATION: Yes alert MENINGEAL SIGNS: Yes no meningeal signs SPEECH: speech normal Psych: COMMON NORMALS: mental status grossly normal, Normal thought process present, cooperative, normal affect, speech normal and activity/motor behavior normal SPEECH: Yes normal speech THOUGHT PROCESS: Normal thought process present Skin: COMMON NORMALS: no rashes or lesions noted, turgor normal, no jaundice, no petechiae and no mottling GENERAL SKIN EXAM: no rashes or lesions noted and turgor normal Course Vital Signs: Vital signs: Vital Signs Temperature 97.8 F 10/15/20 22:16 Pulse Rate 70 10/15/20 22:16 Respiratory Rate 16 10/15/20 22:16 Blood Pressure 92/65 10/15/20 22:16 Pulse Oximetry 99 10/15/20 22:16 MDM - Recheck/Abnormal Lab/Rx MDM Narrative: Medical decision making narrative: 2003 -the case was reviewed with Dr. Elizondo of [facility]. Previous labs from earlier today were reviewed. She does not want any further anticoagulation secondary the patient's GI bleed symptoms. She would like the patient to get 2 units of blood started. She will accept the patient in transfer. 2228 -patient is refusing a second IV for a Protonix drip. He did allow us to give the bolus before blood was started. Blood is currently infusing. To be life flighted as it is a quickest available transfer mechanism to [place]. The delay up to this point has been secondary to weather and arranging for this transport. Lab Data: Labs: Lab Results 10/15/20 10/15/20 10/15/20 Range/Units 20:20 20:20 20:20 WBC 10.6 H (4.0-10.0) 10^3/ uL RBC 2.23 L (4.1-5.3) 10^6/u L Hgb 5.8 L* (11.7-16.6) g/dL Hct 18.9 L* (42.0-52.0) % MCV 84.8 (80-94) fL MCH 26.0 L (28.0-34.0) pg MCHC 30.7 (30.0-36.0) g/dL RDW 24.1 H (12.1-15.1) % Plt Count 288 (130-400) 10^3/c mm MPV 9.5 (7.4-10.4) fL Neut % (Auto) 82.1 % Lymph % (Auto) 4.5 % [place] % (Auto) 8.5 % Eos % (Auto) 0.8 % Baso % (Auto) 0.2 % Neut # (Auto) 8.70 H (1.8-7.7) 10^3/u L Lymph # (Auto) 0.5 L (0.8-4.8) 10^3/u L [place] # (Auto) 0.9 (0.2-0.9) 10^3/u L Eos # (Auto) 0.1 (0.0-0.8) 10^3/u L Baso # (Auto) 0.0 (0.0-0.1) 10^3/u L Nucleated RBC % (a uto) 0.3 % Nucleated RBCs # 0.0 /100WBC PT 19.20 H (12.1-14.9) SECO NDS INR 1.56 H (0.8-1.2) APTT 34.9 (23.9-36.7) SECO NDS Sodium 126 L (136-145) mmol/L Potassium 4.6 (3.5-5.1) mmol/L Chloride 90 L (98-107) mmol/L Carbon Dioxide 23 (22-29) mmol/L Anion Gap 17.6 (5-19) BUN 86 H* (6-20) mg/dL Creatinine 2.0 H (0.7-1.2) mg/dL GFR Calculation 35.1 L (90-130) mL/min Glucose 123 H (65-115) mg/dL Calculated Osmolal ity 290 (285-295) mOsm/k g Calcium 8.2 L (8.5-10.5) mg/dL Total Bilirubin 0.3 (0.15-1.2) mg/dL AST 23 (0-40) U/L ALT 19 (0-41) U/L Alkaline Phosphata se 123 (40-130) IU/L Troponin T Baselin e (0-15) ng/L Total Protein 5.3 L (6.6-8.7) g/dL Albumin 3.0 L (3.5-5.2) g/dL Globulin 2.3 (1.3-4.6) g/dL Urine Color (Yellow) Urine Appearance (CLEAR) Urine pH (5-7) Ur Specific Gravit y (1.005-1.030) Urine Protein (Negative) Urine Glucose (UA) (Normal) Urine Ketones (Negative) Urine Blood (Negative) Urine Nitrate (Negative) Urine Bilirubin (Negative) Urine Urobilinogen (Negative) mg/dL Ur Leukocyte Yessenia ase (Negative) Blood Type Rho(D) Type Antibody Screen Crossmatch 10/15/20 10/15/20 10/15/20 Range/Units 20:20 20:20 20:45 WBC (4.0-10.0) 10^3/ uL RBC (4.1-5.3) 10^6/u L Hgb (11.7-16.6) g/dL Hct (42.0-52.0) % MCV (80-94) fL MCH (28.0-34.0) pg MCHC (30.0-36.0) g/dL RDW (12.1-15.1) % Plt Count (130-400) 10^3/c mm MPV (7.4-10.4) fL Neut % (Auto) % Lymph % (Auto) % [place] % (Auto) % Eos % (Auto) % Baso % (Auto) % Neut # (Auto) (1.8-7.7) 10^3/u L Lymph # (Auto) (0.8-4.8) 10^3/u L [place] # (Auto) (0.2-0.9) 10^3/u L Eos # (Auto) (0.0-0.8) 10^3/u L Baso # (Auto) (0.0-0.1) 10^3/u L Nucleated RBC % (a uto) % Nucleated RBCs # /100WBC PT (12.1-14.9) SECO NDS INR (0.8-1.2) APTT (23.9-36.7) SECO NDS Sodium (136-145) mmol/L Potassium (3.5-5.1) mmol/L Chloride (98-107) mmol/L Carbon Dioxide (22-29) mmol/L Anion Gap (5-19) BUN (6-20) mg/dL Creatinine (0.7-1.2) mg/dL GFR Calculation (90-130) mL/min Glucose (65-115) mg/dL Calculated Osmolal ity (285-295) mOsm/k g Calcium (8.5-10.5) mg/dL Total Bilirubin (0.15-1.2) mg/dL AST (0-40) U/L ALT (0-41) U/L Alkaline Phosphata se (40-130) IU/L Troponin T Baselin e 24 H (0-15) ng/L Total Protein (6.6-8.7) g/dL Albumin (3.5-5.2) g/dL Globulin (1.3-4.6) g/dL Urine Color Straw (Yellow) Urine Appearance Clear (CLEAR) Urine pH 5 (5-7) Ur Specific Gravit y 1.005 (1.005-1.030) Urine Protein Neg (Negative) Urine Glucose (UA) Norm (Normal) Urine Ketones Negative (Negative) Urine Blood Neg (Negative) Urine Nitrate Negative (Negative) Urine Bilirubin Neg (Negative) Urine Urobilinogen Norm (Negative) mg/dL Ur Leukocyte Yessenia ase Negative (Negative) Blood Type O Positive Rho(D) Type Positive Antibody Screen Negative Crossmatch See Detail Imaging Data^: CXR: Attestation: I personally reviewed and interpreted this imaging study as follows: My impression: LVAD tubes in place without abnormal finding. No acute cardiopulmonary edema or acute cardiopulmonary process seen. EKG Data^: EKG 1: Attestation: I personally reviewed and interpreted this EKG as follows: EKG interpretation date: 10/15/20 EKG interpretation time: 19:49 Interpretation: Supraventricular rhythm with a ventricular rate of 73 beats a minute, significant baseline artifact, nonspecific ST and T wave changes. Discharge Plan Discharge Patient Disposition: Xfer Short-Term Hosp Clinical Impression: Acute GI bleeding Anemia Qualifiers: Anemia type: unspecified type Qualified Code(s): D64.9 - Anemia, unspecified Left ventricular assist device (LVAD) complication Qualifiers: Encounter type: initial encounter Qualified Code(s): T82.9XXA - Unspecified complication of cardiac and vascular prosthetic device, implant and graft, initial encounter Condition: Stable Referrals: Virgie Little MD [Primary Care Provider] - Coding Level of Care Code ED Strap Folding Machine Operator for Chg Fwd Exam Comprehensive
[2020-10-15 20:47] LABS: Basophils % 0.2 %; Eosinophils # 0.1 10^3/uL (0.0-0.8); Eosinophils % 0.8 %; Lymphocytes # 0.5 10^3/uL (0.8-4.8); Lymphocytes % 4.5 %; Mean Corpuscular HGB Conc 30.7 g/dL (30.0-36.0); Mean Corpuscular Volume 84.8 fL (80-94); Mean Platelet Volume 9.5 fL (7.4-10.4); Monocytes # 0.9 10^3/uL (0.2-0.9); Monocytes % 8.5 %; Neutrophils % 82.1 %; Nucleated Red Blood Cells % 0.3 %; Platelet Count 288 10^3/cmm (130-400); Red Blood Count 2.23 10^6/uL (4.1-5.3); Red Cell Distribution Width 24.1 % (12.1-15.1); White Blood Count 10.6 10^3/uL (4.0-10.0)
[2020-10-15 20:50] LABS: Hematocrit 18.9 % (42.0-52.0); Hemoglobin 5.8 g/dL (11.7-16.6)
[2020-10-15 21:00] LABS: INR 1.56 (0.8-1.2)
[2020-10-15 21:01] LABS: Partial Thromboplastin Time 34.9 SECONDS (23.9-36.7)
[2020-10-15 21:06] LABS: Add Urine Microscopic? NO
[2020-10-15 21:10] LABS: Alanine Aminotransferase 19 U/L (0-41); Alkaline Phosphatase 123 IU/L (40-130); Anion Gap 17.6 (5-19); Aspartate Amino Transferase 23 U/L (0-40); Calcium 8.2 mg/dL (8.5-10.5); Carbon Dioxide 23 mmol/L (22-29); Chloride 90 mmol/L (98-107); Globulin 2.3 g/dL (1.3-4.6); Glomerular Filtration Rate 35.1 mL/min (90-130); Glucose 123 mg/dL (65-115); Osmolality Calculated 290 mOsm/kg (285-295); Potassium 4.6 mmol/L (3.5-5.1); Sodium 126 mmol/L (136-145); Total Bilirubin 0.3 mg/dL (0.15-1.2); Total Protein 5.3 g/dL (6.6-8.7)
[2020-10-15 21:11] LABS: Troponin(5th) Baseline 24 ng/L (0-15)
[2020-10-15 21:12] LABS: Bilirubin Urine Neg (Negative); Blood Urine Neg (Negative); Glucose Urine UA Norm (Normal); Ketones Urine Negative (Negative); Leukocyte Esterase Urine Negative (Negative); Nitrate Urine Negative (Negative); Protein Urine Neg (Negative); Specific Gravity, Urine 1.005 (1.005-1.030); Urine Appearance Clear (CLEAR); Urine Color Straw (Yellow); Urobilinogen Urine Norm (Negative); pH Urine 5 (5-7)
[2020-10-15 21:14] LABS: Blood Urea Nitrogen 86 mg/dL (6-20)
--- NOTE | 2020-10-15 22:11 | PC.NURSE ---
waiting for blood transfusion
[2020-10-15] MEDS: pantoprazole 40 mg SDV 80 MG IVP (22:21)
[2020-10-16] VITALS: BP 108/77
[2020-10-16 00:03] VITALS: BP 108/77; PULSE 70; RESP 18; TEMP 36.3; O2SAT 99
[2020-10-16 00:05] VITALS: BP 108/77
--- NOTE | 2020-10-16 00:14 | PC.NURSE ---
on transfer 100cc infused. with 250cc to completed on transfer
--- NOTE | 2020-10-16 00:18 | PC.NURSE ---
Pt being transfer via flight team and EMS with Blood infusing
[2020-10-16 00:25] VITALS: BP 107/81; PULSE 70; RESP 18; TEMP 36.6; O2SAT 99
== END 2020-10-16 00:20 | disposition short-term general hospital (02) ==
LOC: ER 20:17
PROVIDERS: Emergency Provider Emergency Medicine; PCP Internal Medicine
DX: K92.2 Gastrointestinal hemorrhage, unspecified (principal); D64.9 Anemia, unspecified; T82.9XXA Unspecified complication of cardiac and vascular prosthetic device, implant and graft, initial encounter
CPT/HCPCS: 12345; 36430; 71045; 80053; 81003; 84484; 85025; 85610; 85730; 86850; 86900; 86920; 93005; 96365; 96375; 99284; 99285; C9113; P9016

== ENCOUNTER 2021-04-15 01:04 | Emergency (ER) | payer MEDICARE, MEDICAID, SELFPAY ==
[2021-04-15 01:06] VITALS: BP 120/120; PULSE 94; RESP 26; TEMP 36.9; O2SAT 96; BMI 33.5
--- NOTE | 2021-04-15 01:08 | XRR_ITS ---
PROCEDURE INFORMATION: Exam: XR Chest Exam date and time: 04/15/2021 1:10 AM Age: 55 years old Clinical indication: Pain; Other: Defib going off; Prior surgery; Surgery date: 6+ months; Additional info: Cp TECHNIQUE: Imaging protocol: XR of the chest. Views: 1 view. COMPARISON: CR XR chest 1V portable [id number] 10/15/2020 7:34 PM FINDINGS: Tubes, catheters and devices: There is a left AICD with leads overlying the right atrium and right ventricle. Lungs: Mild pulmonary vascular enlargement. Pleural spaces: Unremarkable. No pleural effusion. No pneumothorax. Heart/Mediastinum: There is mild cardiomegaly. Bones/joints: Unremarkable. XR/XR chest 1V portable [id number] IMPRESSION: Mild pulmonary vascular congestion and cardiomegaly.
--- NOTE | 2021-04-15 01:08 | ECG_ITS ---
[facility] Test Date: 2021-04-15 Pat Name: Aniceto Ayala Department: Room: Gender: Male Healthcare Specialist: : 1965 Requested By: Yan Larsen Order Number: [id number] Aneta MD: Jamin Stokes M.D. Measurements Intervals [place] Rate: 85 P: NE: QRS: -81 QRSD: 182 T: 34 QT: 504 QTc: 602 Interpretive Statements ATRIAL FIBRILLATION WITH ABERRANT CONDUCTION OR VENTRICULAR PREMATURE COMPLEXES LEFT AXIS DEVIATION [QRS AXIS < -30] RIGHT BUNDLE BRANCH BLOCK [120+ ms QRS DURATION, UPRIGHT V1, 40+ ms S IN I/aVL/V4/V5/V6] POSSIBLE ANTERIOR MYOCARDIAL INFARCTION , OF INDETERMINATE AGE [30 ms Q WAVE IN V3/V4, OR R < 0.2 mV IN V4] Compared to ECG 10/15/2020 19:49:25 Ventricular premature complex(es) now present Aberrant conduction of supraventricular beat(s) now present Left-axis deviation now present Myocardial infarct finding now present Supraventricular rhythm no longer present Electronically Signed On 04-15-2021 16:18:35 CDT by Jamin Stokes M.D. [id number]
--- NOTE | 2021-04-15 01:09 | W.ED.CHESTPA ---
HPI - Chest Pain General: Chief Complaint: Chest Pain Stated Complaint: pacer firing and lvad Time Seen by Provider: 04/15/21 01:07 Source: patient and EMS Mode of arrival: EMS Limitations: no limitations History of Present Illness: HPI narrative: 55-year-old male who has a extensive cardiac history and has an LVAD along with AICD. He states he has been shocked 3 times by his defibrillator today. First time was at 1130. EMS states they witnessed the third shock roughly 40 minutes ago. I do not have him on at the monitor at that time so unsure what rhythm he was in. Denies any chest pain or shortness of breath. He states he been having some weakness. Associated symptoms: Deny abdominal pain, dyspnea, fever(s), nausea or vomiting Review of Systems Const: Denies: fever(s), chills, body aches or change in appetite Eyes: Denies: blurry vision or eye discomfort ENMT: Denies: throat pain or dental pain Card: Reports: chest pain Resp: Denies: dyspnea GI: Denies: abdominal pain, nausea, vomiting or diarrhea : Denies: dysuria Musc: Denies: neck pain or back pain Skin/Breast: Denies: rash Neuro: Denies: headache(s) Psych: Denies: depression Cuong/Lymph: Denies: easy bruising All/Imm: Denies: urticaria PFSH ED PFSH: Medical History (Updated 04/15/21 @ 01:45 by Yan Larsen MD) FH: cholecystectomy Heart disease High blood pressure Surgical History History of left ventricular assist device (LVAD) S/P triple vessel bypass Physical Exam Const: COMMON NORMALS: no acute distress, patient oriented x3 and healthy appearing HENMT: COMMON NORMALS: normocephalic and atraumatic HEAD & SCALP: normocephalic and atraumatic Eye: COMMON NORMALS: Equal, round and reactive pupils present and EOMs intact bilaterally PUPIL: Yes Equal, round and reactive pupils present Neck/C-Spine: COMMON NORMALS: full ROM and supple Chest: COMMONS NORMALS: normal inspection of the chest and normal palpation of entire chest wall Resp: COMMON NORMALS: normal respiratory effort, No retractions, No use of accessory muscles and clear to auscultation bilaterally AUSCULTATION: clear to auscultation bilaterally Cardio: COMMON NORMALS: regular rate, regular rhythm and No murmurs present (Cardio) RATE: regular rate RHYTHM: regular rhythm GI: COMMON NORMALS: Normal to inspection, nondistended, normoactive bowel sounds present, Soft to palpation, non-tender and no masses PALPATION: Yes Soft to palpation Extremity: COMMON NORMALS: normal to inspection and full ROM Neuro: COMMON NORMALS: patient oriented x3, moves all extremities and no focal motor deficits Psych: COMMON NORMALS: mental status grossly normal, Normal thought process present and cooperative THOUGHT PROCESS: Normal thought process present Skin: COMMON NORMALS: no rashes or lesions noted and no wounds GENERAL SKIN EXAM: no rashes or lesions noted Course Vital Signs: Vital signs: Vital Signs Temperature 98.5 F 04/15/21 01:06 Pulse Rate 84 04/15/21 01:33 Respiratory Rate 20 H 04/15/21 01:33 Blood Pressure 117/82 04/15/21 01:33 Pulse Oximetry 95 04/15/21 01:33 MDM - Chest Pain MDM Narrative: Medical decision making narrative: Aniceto presents here with his defibrillator firing. I had [employer] evaluate his defibrillator and he did have runs of [employer]. Patient has an LVAD as well. He has been stable here were in the ER. I spoke to his physician at [facility] and will transfer there for higher level of care for his LVAD. Lab Data: Labs: Lab Results 04/15/21 Range/Units 01:25 WBC 7.5 (4.0-10.0) 10^3/ uL RBC 2.89 L (4.1-5.3) 10^6/u L Hgb 9.0 L (11.7-16.6) g/dL Hct 26.7 L (42.0-52.0) % MCV 92.4 (80-94) fL MCH 31.1 (28.0-34.0) pg MCHC 33.7 (30.0-36.0) g/dL RDW 17.2 H (12.1-15.1) % Plt Count 115 L (130-400) 10^3/c mm MPV 12.1 H (7.4-10.4) fL Neut % (Auto) 84.3 % Lymph % (Auto) 4.9 % [place] % (Auto) 5.7 % Eos % (Auto) 4.1 % Baso % (Auto) 0.3 % Neut # (Auto) 6.34 (1.8-7.7) 10^3/u L Lymph # (Auto) 0.4 L (0.8-4.8) 10^3/u L [place] # (Auto) 0.4 (0.2-0.9) 10^3/u L Eos # (Auto) 0.3 (0.0-0.8) 10^3/u L Baso # (Auto) 0.0 (0.0-0.1) 10^3/u L Nucleated RBC % (a uto) 0.3 % Nucleated RBCs # 0.0 /100WBC Imaging Data^: CXR: Attestation: I personally reviewed and interpreted this imaging study as follows: My impression: no acute abnormalities EKG Data^: EKG 1: Attestation: I personally reviewed and interpreted this EKG as follows: EKG interpretation date: 04/15/21 EKG interpretation time: 01:13 Interpretation: afib hr [address] elevation qrs 182 qtc 546 Critical Care Time Critical Care Time: Critical Care Time: Yes Total Critical Care Time: 35 Attestation: This case had a high probability of a clinically significant, sudden, or life threatening deterioration of this patient's condition which required my full and direct attention, intervention and personal management. Discharge Plan Discharge Patient Disposition: Xfer Short-Term Hosp Clinical Impression: AICD discharge, LVAD (left ventricular assist device) present Condition: Stable Referrals: Virgie Little MD [Primary Care Provider] - Coding Level of Care Code ED Activated Sludge Attendant for Chg Fwd Exam Comprehensive
[2021-04-15 01:33] VITALS: BP 117/82; PULSE 84; RESP 20; O2SAT 95
[2021-04-15 01:41] LABS: Basophils % 0.3 %; Eosinophils # 0.3 10^3/uL (0.0-0.8); Eosinophils % 4.1 %; Hematocrit 26.7 % (42.0-52.0); Lymphocytes # 0.4 10^3/uL (0.8-4.8); Lymphocytes % 4.9 %; Mean Corpuscular HGB Conc 33.7 g/dL (30.0-36.0); Mean Corpuscular Hemoglobin 31.1 pg (28.0-34.0); Mean Corpuscular Volume 92.4 fL (80-94); Mean Platelet Volume 12.1 fL (7.4-10.4); Monocytes # 0.4 10^3/uL (0.2-0.9); Monocytes % 5.7 %; Neutrophils # 6.34 10^3/uL (1.8-7.7); Neutrophils % 84.3 %; Nucleated Red Blood Cells % 0.3 %; Platelet Count 115 10^3/cmm (130-400); Red Blood Count 2.89 10^6/uL (4.1-5.3); Red Cell Distribution Width 17.2 % (12.1-15.1); White Blood Count 7.5 10^3/uL (4.0-10.0)
[2021-04-15 01:50] LABS: INR 1.75 (0.8-1.2)
[2021-04-15 01:58] VITALS: BP 106/0; PULSE 82; RESP 20; TEMP 37.1; O2SAT 96
[2021-04-15 02:00] LABS: Albumin Level 3.6 g/dL (3.5-5.2); Alkaline Phosphatase 126 IU/L (40-130); Calcium 8.3 mg/dL (8.5-10.5); Carbon Dioxide 26 mmol/L (22-29); Chloride 93 mmol/L (98-107); Globulin 3.7 g/dL (1.3-4.6); Glomerular Filtration Rate 35.1 mL/min (90-130); Glucose 190 mg/dL (65-115); Osmolality Calculated 311 mOsm/kg (285-295); Sodium 134 mmol/L (136-145); Total Bilirubin 0.6 mg/dL (0.15-1.2); Total Protein 7.3 g/dL (6.6-8.7)
[2021-04-15 02:01] LABS: Alanine Aminotransferase 16 U/L (0-41); Anion Gap 18.3 (5-19); Aspartate Amino Transferase 42 U/L (0-40); Potassium 3.3 mmol/L (3.5-5.1)
[2021-04-15 02:02] LABS: Blood Urea Nitrogen 91 mg/dL (6-20)
[2021-04-15 02:08] VITALS: PULSE 89
[2021-04-15 02:14] LABS: Troponin(5th) Baseline 23 ng/L (0-15)
[2021-04-15 02:19] VITALS: BP 117/82; PULSE 80; RESP 19; O2SAT 94
--- NOTE | 2021-04-15 02:58 | PC.NURSE ---
0245 Report given to Kathy HAQUE, pt is now awaiting transport to [facility] per air flight. Pt continues to remain pain free and no additional firing of his defibrillator noted.
[2021-04-15 03:01] VITALS: BP 110/0; PULSE 74; RESP 19; TEMP 37; O2SAT 96
[2021-04-15 03:24] LABS: Magnesium 1.8 mg/dL (1.7-2.3)
--- NOTE | 2021-04-15 03:40 | PC.NURSE ---
Report given to air medic/nursing staff. [facility]. Pt has stable VS and no c/o pain.
[2021-04-15 03:53] LABS: Troponin 5 2HR 28.12 ng/L (0-15); Troponin 5 2HR Delta 5.12 ABS# (0-10)
== END 2021-04-15 03:44 | disposition short-term general hospital (02) ==
PROVIDERS: Emergency Provider Emergency Medicine; PCP Internal Medicine
DX: I49.01 Ventricular fibrillation (principal); R07.9 Chest pain, unspecified; R53.1 Weakness; Z45.018 Encounter for adjustment and management of other part of cardiac pacemaker; Z95.811 Presence of heart assist device; Z95.1 Presence of aortocoronary bypass graft
CPT/HCPCS: 71045; 80053; 83735; 84484; 85025; 85610; 93005; 99285

== ENCOUNTER 2021-12-06 11:00 | Emergency (ER) | payer MEDICARE, SELFPAY ==
[2021-12-06 11:04] VITALS: BP 132/101; PULSE 113; RESP 20; TEMP 37.1; O2SAT 96; BMI 33.5
--- NOTE | 2021-12-06 11:04 | ECG_ITS ---
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: : 1965 Requested By: Lyndon Hughes Order Number: [id number] Reading MD: IASHA LEYVA Measurements Intervals [place] Rate: 104 P: [place]: QRS: 265 QRSD: 158 T: 47 QT: 393 QTc: 519 Interpretive Statements ATRIAL FIBRILLATION WITH RAPID VENTRICULAR RESPONSE RIGHT AXIS DEVIATION [QRS AXIS > 100] RIGHT BUNDLE BRANCH BLOCK [120+ ms QRS DURATION, UPRIGHT V1, 40+ ms S IN I/aVL/V4/V5/V6] INFERIOR MYOCARDIAL INFARCTION , OF INDETERMINATE AGE [40+ ms Q WAVE AND/OR ST/T ABNORMALITY IN II/aVF] ANTEROLATERAL MYOCARDIAL INFARCTION , OF INDETERMINATE AGE [40+ ms Q WAVE IN I/aVL/V3-V6] Compared to ECG 04/15/2021 01:13:41 Right-axis deviation now present Ventricular premature complex(es) no longer present Aberrant conduction of supraventricular beat(s) no longer present Left-axis deviation no longer present Myocardial infarct finding still present Electronically Signed On 12-06-2021 18:15:00 MONOTYPER by AISHA LEYVA [id number]
--- NOTE | 2021-12-06 11:04 | XR_ITS ---
WS: [id number] XR chest 1V portable [id number] REASON FOR EXAM: chest pain FINDINGS: Cardiac device overlying the left anterolateral chest. There are leads to the right atrium and right ventricular apex by a transleft subclavian vein insertion. Previous coronary artery bypass surgery. The heart is at the upper limits of normal in size. Prominence of the upper lobe pulmonary veins. Calcified granulomatous disease bilaterally. There are some small linear lung opacities in both lung bases which have the appearance of atelectasi s. No definite interstitial edema or inflammatory infiltrate. No findings of pleural effusion. XR/XR chest 1V portable [id number] IMPRESSION: Minimal areas of atelectasis in the lung bases. The chest is otherwise unchange d compared to 04/15/2021 no other acute abnormality identified.
[2021-12-06 11:12] VITALS: BMI 33.6
[2021-12-06 11:21] LABS: Basophils % 0.4 %; Eosinophils # 0.2 10^3/uL (0.0-0.8); Eosinophils % 2.3 %; Hematocrit 31.5 % (42.0-52.0); Hemoglobin 10.1 g/dL (11.7-16.6); Lymphocytes # 0.3 10^3/uL (0.8-4.8); Lymphocytes % 4.2 %; Mean Corpuscular HGB Conc 32.1 g/dL (30.0-36.0); Mean Corpuscular Hemoglobin 29.7 pg (28.0-34.0); Mean Corpuscular Volume 92.6 fl (80-94); Mean Platelet Volume 10.3 fL (7.4-10.4); Monocytes # 0.5 10^3/uL (0.2-0.9); Monocytes % 6.7 %; Neutrophils # 6.28 10^3/uL (1.8-7.7); Nucleated Red Blood Cells % 0 %; Platelet Count 108 10^3/cmm (130-400); Red Cell Distribution Width 16.3 % (12.1-15.1); White Blood Count 7.3 10^3/uL (4.0-10.0)
--- NOTE | 2021-12-06 11:29 | ED_ITS ---
HPI - General Adult General: Chief complaint: Chest Pain Stated complaint: CHEST PRESSURE Time Seen by Provider: 12/06/21 11:01 History of Present Illness: HPI narrative: CC: Chest Pain HPI: This is a [56] yo patient hx of CABG, LVAD (procedure formed in in [facility]) presenting to the ED complaining of acute sudden onset pressure like sharp chest pain since 9:30am today. +Associated with shortness of breath, chest pain or dyspnea on exertion. Pain is not tearing in nature and does not radiate to the back. Pain not associated with vomiting or PO intake. Denies any recent sympathomimetic drug use. Patient denies any cough. Denies palpitations, dysphagia, diaphoresis, radiation of pain to bilateral arms, jaw. Denies F/N/V/D. Patient denies any recent immobility, surgery, unilateral leg swelling, or prior PE. Patient denies any orthopnea. Onset: 9:30am Duration: ongoing for the last 2 hrs Location: home Severity: moderate Associated symptoms: Reports chest pain and dyspnea; Deny nausea, rash, palpitations or vomiting Review of Systems Const: Denies: fever(s) or chills Eyes: Denies: change in vision ENMT: Denies: mouth pain Card: Reports: chest pain; Denies: palpitations Resp: Reports: dyspnea; Denies: non-productive cough GI: Denies: abdominal pain, nausea, vomiting or diarrhea : Denies: dysuria Musc: Denies: extremity pain Skin/Breast: Denies: rash or new lesions Neuro: Denies: weakness in extremities Psych: Reports: other (Normal mood) Cuong/Lymph: Denies: easy bruising PFS ED PFSH: Medical History FH: cholecystectomy Heart disease High blood pressure Surgical History (Updated 12/06/21 @ 11:30 by Lyndon Hughes MD) History of left ventricular assist device (LVAD) History of left ventricular assist device (LVAD) S/P triple vessel bypass Physical Exam Const: COMMON NORMALS: alert HENMT: COMMON NORMALS: atraumatic HEAD & SCALP: atraumatic MOUTH: moist mucous membranes not abnormal Eye: COMMON NORMALS: EOMs intact bilaterally and conjunctivae normal CONJUNCTIVA: Yes conjunctivae normal Neck/C-Spine: COMMON NORMALS: full ROM and supple Resp: COMMON NORMALS: normal respiratory effort and clear to auscultation bilaterally AUSCULTATION: clear to auscultation bilaterally Cardio: RATE: Other (mechanical continuous hum) GI: COMMON NORMALS: Soft to palpation and non-tender PALPATION: Yes Soft to palpation Extremity: COMMON NORMALS: full ROM Neuro: SENSORIUM/ORIENTATION: Yes alert MOTOR EXAM: No Abnormal motor strength present and Other motor observations present (no focal motor deficits) Psych: COMMON NORMALS: speech normal SPEECH: Yes normal speech MOOD & AFFECT: Yes euthymic mood Course Vital Signs: Vital signs: Vital Signs Temperature 98.7 F 12/06/21 11:04 Pulse Rate 115 H 12/06/21 16:14 Respiratory Rate 22 H 12/06/21 16:14 Blood Pressure 132/101 12/06/21 16:14 Pulse Oximetry 95 12/06/21 16:14 MDM - General Adult MDM Narrative: Medical decision making narrative: [54]yo patient w/ hx of CABG, LVAD presenting to the ED with evaluation of new onset pressure like chest pain lasting for the last 2 hrs. HDS, pulse 2+ radially bilaterally, no signs of fluid overload, AAOx3, neuro exam intact. Given hx and story, I have no suspicion for pneumothorax, Pneumonia, Pulmonary Embolus, Tamponade, Aortic Dissection or other emergent problems as a cause for this presentation. Workup: ECG x 2, CXR, CBC, BMP, Troponin x 2 Interventions: ASA, nitro Findings: ECG: EKG showing regular sinus rhythm at HT of 104. Extreme right axis. RBBB No ST elevations/depressions to suggest coronary occlusion. Normal WA, QRS, QT intervals. H&H of 10 close to baseline of 9-10.11.8 CXR: Without PTX, PNA, or widened mediastinum [12:15pm] On reassessment, he has not had any recent assessment for self in over a year. Given new onset of chest pain, decision was made to transfer patient to LVAD center for further evaluation, cardiac workup and testing. Case was discussed with Dr. Recinos from [facility] who agrees with the transfer. K of 6.1, s/p 40 of lasix. Repeat K of 5.9, no EKG changes to suggest hyperkalemia. Disposition: transfer to outside hospital for management of chest pain in the setting of LVAD Lab Data: Labs: Lab Results 12/06/21 12/06/21 12/06/21 11:11 11:11 11:11 WBC 7.3 10^3/uL 10^3/ uL (4.0-10.0) RBC 3.40 10^6/uL L 10 ^6/uL (4.1-5.3) Hgb 10.1 g/dL L g/dL (11.7-16.6) Hct 31.5 % L % (42.0-52.0) MCV 92.6 fl fl (80-94) MCH 29.7 pg pg (28.0-34.0) MCHC 32.1 g/dL g/dL (30.0-36.0) RDW 16.3 % H % (12.1-15.1) Plt Count 108 10^3/cmm L 10 ^3/cmm (130-400) MPV 10.3 fL fL (7.4-10.4) Neut % (Auto) 86.0 % % Lymph % (Auto) 4.2 % % [place] % (Auto) 6.7 % % Eos % (Auto) 2.3 % % Baso % (Auto) 0.4 % % Neut # (Auto) 6.28 10^3/uL 10^3 /uL (1.8-7.7) Lymph # (Auto) 0.3 10^3/uL L 10^ 3/uL (0.8-4.8) [place] # (Auto) 0.5 10^3/uL 10^3/ uL (0.2-0.9) Eos # (Auto) 0.2 10^3/uL 10^3/ uL (0.0-0.8) Baso # (Auto) 0.0 10^3/uL 10^3/ uL (0.0-0.1) Nucleated RBC % (a uto) 0 % % Nucleated RBCs # 0.0 /100WBC /100W BC Specimen Type Sample Site ABG pH ABG pCO2 ABG pO2 ABG HCO3 ABG O2 Saturation ABG Base Excess Kofi Test A-a O2 Gradient Hematocrit Hgb O2 Saturation Carboxyhemoglobin Methemoglobin Total Hemoglobin Ionized Calcium O2 Delivery Device Civil Laboratory Technician ID Sodium 135 mmol/L L mmol /L (136-145) Potassium 6.4 mmol/L H mmol /L (3.5-5.1) Chloride 102 mmol/L mmol/L (98-107) Carbon Dioxide 20 mmol/L L mmol/ L (22-29) Anion Gap 19.4 H (5-19) BUN 42 mg/dL H mg/dL (6-20) Creatinine 2.4 mg/dL H mg/dL (0.7-1.2) GFR Calculation 28.4 mL/min L mL/ min (90-130) Glucose 112 mg/dL mg/dL (65-115) Calculated Osmolal ity 291 mOsm/kg mOsm/ kg (285-295) Calcium 8.1 mg/dL L mg/dL (8.5-10.5) Troponin T Baselin e 38 ng/L H ng/L (0-15) Troponin T 120 Min [place] Troponin T SARS-CoV-2 Ag (Rap id) 12/06/21 12/06/21 12/06/21 11:11 13:20 14:28 WBC RBC Hgb Hct MCV MCH MCHC RDW Plt Count MPV Neut % (Auto) Lymph % (Auto) [place] % (Auto) Eos % (Auto) Baso % (Auto) Neut # (Auto) Lymph # (Auto) [place] # (Auto) Eos # (Auto) Baso # (Auto) Nucleated RBC % (a uto) Nucleated RBCs # Specimen Type Sample Site ABG pH ABG pCO2 ABG pO2 ABG HCO3 ABG O2 Saturation ABG Base Excess Kofi Test A-a O2 Gradient Hematocrit Hgb O2 Saturation Carboxyhemoglobin Methemoglobin Total Hemoglobin Ionized Calcium O2 Delivery Device Civil Laboratory Technician ID Sodium 138 mmol/L mmol/L (136-145) Potassium 6.1 mmol/L H mmol /L (3.5-5.1) Chloride 107 mmol/L mmol/L (98-107) Carbon Dioxide 19 mmol/L L mmol/ L (22-29) Anion Gap 18.1 (5-19) BUN 40 mg/dL H mg/dL (6-20) Creatinine 2.4 mg/dL H mg/dL (0.7-1.2) GFR Calculation 28.4 mL/min L mL/ min (90-130) Glucose 95 mg/dL mg/dL (65-115) Calculated Osmolal ity 296 mOsm/kg H mOs m/kg (285-295) Calcium 8.3 mg/dL L mg/dL (8.5-10.5) Troponin T Baselin e Troponin T 120 Min [place] 38.88 ng/L H ng/L (0-15) Delta Troponin T 0.88 ABS# ABS# (0-10) SARS-CoV-2 Ag (Rap id) Negative (Negative) 12/06/21 14:39 WBC RBC Hgb Hct MCV MCH MCHC RDW Plt Count MPV Neut % (Auto) Lymph % (Auto) [place] % (Auto) Eos % (Auto) Baso % (Auto) Neut # (Auto) Lymph # (Auto) [place] # (Auto) Eos # (Auto) Baso # (Auto) Nucleated RBC % (a uto) Nucleated RBCs # Specimen Type Arterial Sample Site Radial, right ABG pH 7.42 (7.35-7.45) ABG pCO2 35.2 mmHg mmHg (35-45) ABG pO2 70.9 mmHg L mmHg (80.0-100.0) ABG HCO3 23.0 mmol/L mmol/ L (22-26) ABG O2 Saturation 95.1 ABG Base Excess -1.1 mmol/L mmol/ L (-2.0-2.0) Kofi Test Pos A-a O2 Gradient 4.5 mmHg L mmHg (5-10) Hematocrit 31.8 % L % (42-52) Hgb O2 Saturation 92.5 % L % (95-100) Carboxyhemoglobin 1.9 %THgb %THgb (0.4-20.1) Methemoglobin 0.8 % % (0.4-1.5) Total Hemoglobin 10.4 g/dL L g/dL (14-18) Ionized Calcium 1.2 mmol/L mmol/L (1.1-1.4) O2 Delivery Device None Civil Laboratory Technician ID [place] Sodium 141.0 mmol/L mmol /L (131-143) Potassium 5.9 mmol/L H mmol /L (3.5-5.0) Chloride Carbon Dioxide Anion Gap BUN Creatinine GFR Calculation Glucose 100.0 mg/dL mg/dL (70-115) Calculated Osmolal ity Calcium Troponin T Baselin e Troponin T 120 Min [place] Troponin T SARS-CoV-2 Ag (Rap id) Imaging Data^: Other Imaging: Radiologist's impression: [facility] [facility], [place] [address]KGzz ReportSigned Patient: Aniceto Ayala AUnit #: [id number]: [id number]#:[id number]/Sex: 56 / MADM Date: 12/06/21Loc: ERRoom/Bed:Attending Dr: Ordering Provider/Ordering MD: Lyndon Hughes MD Date of Service: 12/06/21 Procedure(s): XR chest 1V portable [id number] Accession Number(s): [id number] Report Number: [id number] WS: [id number] XR chest 1V portable [id number] REASON FOR EXAM: chest pain FINDINGS: Cardiac device overlying the left anterolateral chest. There are leads to the right atrium and right ventricular apex by a transleft subclavian vein insertion. Previous coronary artery bypass surgery. The heart is at the upper limits of normal in size. Prominence of the upper lobe pulmonary veins. Calcified granulomatous disease bilaterally. There are some small linear lung opacities in both lung bases which have the ap pearance of atelectasis. No definite interstitial edema or inflammatory infiltrate. No findings of pleural effusion. XR/XR chest 1V portable [id number] IMPRESSION: Minimal areas of atelectasis in the lung bases. The chest is otherwise unchanged compared to 04/15/2021 no other acute abnormality identified. Dictated By:Juvencio Alfaro Jr MDSigned By:Juvencio Alfaro Jr MDSigned Date/Time:12/06/21 1128DD/ 1123 Discharge Plan Discharge Patient Disposition: Transfer to ED Clinical Impression: History of left ventricular assist device (LVAD), Chest pain Condition: Stable Prescriptions: No Action sodium bicarbonate 325 mg tablet 325 mg PO BID RF: 0 quetiapine 50 mg tablet 100 mg PO DAILY RF: 0 amlodipine 10 mg tablet 10 mg PO DAILY RF: 0 hydralazine 50 mg tablet 100 mg PO DAILY RF: 0 enoxaparin [Lovenox] 120 mg/0.8 mL syringe See Rx Instructions .ROUTE .COMPLEX RF: 0 warfarin 5 mg tablet See Rx Instructions .ROUTE .COMPLEX RF: 0 atorvastatin 40 mg tablet 40 mg PO BEDTIME RF: 0 metoprolol succinate 25 mg capsule,sprinkle,ER 24hr 25 mg PO DAILY RF: 0 bumetanide 2 mg tablet 6 mg PO BID RF: 0 allopurinol 300 mg tablet 300 mg PO DAILY RF: 0 levetiracetam [Keppra] 1,000 mg tablet 500 mg PO TID RF: 0 omeprazole 40 mg capsule,delayed release(DR/EC) 40 mg PO DAILY RF: 0 magnesium 250 mg tablet 250 mg PO DAILY RF: 0 ondansetron HCl 4 mg tablet 4 mg PO Q8H PRN (Reason: N/V) RF: 0 Vascepa 1 gram capsule 2 gm PO BID RF: 0 metolazone 2.5 mg tablet 2.5 mg PO .Every other day RF: 0 doxycycline hyclate 100 mg capsule 100 mg PO BID RF: 0 isosorbide mononitrate 30 mg tablet extended release 24 hr 30 mg PO DAILY RF: 0 sertraline 100 mg tablet 100 mg PO DAILY RF: 0 pramipexole 0.125 mg tablet 0.125 mg PO BEDTIME RF: 0 diazepam 5 mg tablet 5 mg PO DAILY PRN (Reason: unknown) RF: 0 multivitamin [Multiple Vitamins] Tablet 1 tab PO DAILY RF: 0 potassium chloride 20 mEq tablet,ER particles/crystals 40 meq PO QID RF: 0 ferrous sulfate 325 mg (65 mg iron) Tablet 325 mg PO BID RF: 0 levothyroxine 150 mcg tablet 150 mcg PO DAILY RF: 0 ergocalciferol (vitamin D2) [Vitamin D2] 1,250 mcg (50,000 unit) capsule 50,000 unit PO Q7D RF: 0 melatonin 10 mg Tablet 30 mg PO BEDTIME RF: 0 Referrals: Virgie Little MD [Primary Care Provider] - Coding Level of Care Code ED Guest Room Attendant for Chg Fwd Exam Comprehensive
[2021-12-06 11:47] LABS: Anion Gap 19.4 (5-19); Blood Urea Nitrogen 42 mg/dL (6-20); Calcium 8.1 mg/dL (8.5-10.5); Carbon Dioxide 20 mmol/L (22-29); Chloride 102 mmol/L (98-107); Glomerular Filtration Rate 28.4 mL/min (90-130); Glucose 112 mg/dL (65-115); Osmolality Calculated 291 mOsm/kg (285-295); Potassium 6.4 mmol/L (3.5-5.1); Sodium 135 mmol/L (136-145)
[2021-12-06 11:48] LABS: Troponin(5th) Baseline 38 ng/L (0-15)
[2021-12-06] MEDS: aspirin 325 mg Tablet PO (11:53)
--- NOTE | 2021-12-06 12:08 | USCV_ITS ---
Jamie Aniceto Age: 56 Gender: M : 1965 Exam Date: 12/06/2021 12:28 Ordering Phys: Lyndon Hughes MD Technologist: ROOPA Exam Location: [facility] – [place] Indication: eval for RIGHT heart strain s/p CABG 2002, again 2003; s/p LVAD 2009; s/p pacer/defibrillator 2005; again in 2007. BP: 132 / 101 HR: 105 Rhythm: Atrial fibrillation Technical Quality: Adequate MEASUREMENTS (Male / Female) Normal Values 2D ECHO LV Diastolic Diameter PLAX 3.9 cm 4.2 - 5.9 / 3.9 - 5.3 cm LV Systolic Diameter PLAX 3.9 cm IVS Diastolic Thickness 1.5 cm 0.6 - 1.0 / 0.6 - 0.9 cm IVS Systolic Thickness 1.1 cm LVPW Diastolic Thickness 1.5 cm 0.6 - 1.0 / 0.6 - 0.9 cm LVPW Systolic Thickness 2.0 cm LVOT Diameter 2.2 cm LV Ejection Fraction 2D Teich 2.4 % LV Ejection Fraction MOD 2C 15.9 % LV Ejection Fraction 2C AL 15.6 % LA Width 5.0 cm LA Height 7.4 cm RA Width 3.6 cm RA Height 5.4 cm Aorta at Sinotubular Diameter 3.0 cm DOPPLER AV Peak Velocity 72.0 cm/s LVOT Peak Velocity 62.0 cm/s AV Area Cont Eq vti 4.3 cm squared AV Area Cont Eq pk 3.2 cm squared MV Area PHT 4.9 cm squared Mitral E to A Ratio 141.7 MV E' Velocity 45.0 cm/s Mitral E to MV E' Ratio 14.2 Mitral E to LV E' Lateral Ratio 16.4 Mitral E to LV E' Septal Ratio 12.5 TR Peak Velocity 216.8 cm/s TR Peak Gradient 18.8 mmHg TV Peak E Velocity 79.0 cm/s Right Atrial Pressure 15.0 mmHg Pulmonary Artery Systolic Pressu 33.8 mmHg PV Peak Velocity 74.3 cm/s RV Acceleration Time 0.1 s RV Ejection Time 0.3 s RV AcT/ET 0.4 FINDINGS Left Ventricle Moderately increased left ventricular cavity size. Severely decreased left ventricular systolic function. Left ventricular ejection fraction is estimated at 24 %. There appeared to be lateral wall severe hypokinesis. There appeared to be septal anterior and apical wall hypokinesis. Right Ventricle The right ventricle is normal in size and function. Catheter/pacemaker wire visualized in the right ventricle. Right Atrium The right atrium is normal in size. Left Atrium Moderately increased left atrial size. Mitral Valve Moderately thickened mitral valve. No mitral valve stenosis. Moderate mitral valve regurgitation. Aortic Valve Moderate aortic valve calcification. No aortic valve stenosis,mild aortic valve regurgitation. Tricuspid Valve Structurally normal tricuspid valve without significant stenosis or regurgitation. Pulmonary artery systolic pressure is normal. Pulmonic Valve Structurally normal pulmonic valve without significant stenosis. There is no pulmonic regurgitation. Pericardium Normal pericardium without effusion. Aorta Normal ascending aorta dimension. CONCLUSIONS 1-Moderately increased left ventricular cavity size. Severely decreased left ventricular systolic function. Left ventricular ejection fraction is estimated at 24 %. There appeared to be lateral wall severe hypokinesis. There appeared to be septal anterior and apical wall hypokinesis. 2-Moderately increased left atrial size. 3-The right ventricle is normal in size and function. Catheter/pacemaker wire visualized in the right ventricle. 4-Moderately thickened mitral valve. No mitral valve stenosis. Moderate mitral valve regurgitation. 5-Moderate aortic valve calcification. No aortic valve stenosis,mild aortic valve regurgitation. 6-There is no pericardial effusion. 7-There are no prior echocardiogram studies to compare. Myron Jaimes MD (Electronically Signed) Final Date: 06 December 2021 18:30 S
[2021-12-06 12:26] LABS: SARS Covid-2 Antigen Negative (Negative)
[2021-12-06 13:59] LABS: Troponin 5 2HR 38.88 ng/L (0-15); Troponin 5 2HR Delta 0.88 ABS# (0-10)
[2021-12-06 14:51] LABS: ABG PCO2 35.2 mmHg (35-45); ABG PH Result 7.42 (7.35-7.45); Alveolar-Arterial Oxygen Gradi 4.5 mmHg (5-10); Arterial Blood Gas Hematocrit 31.8 % (42-52); Base Excess ABG -1.1 mmol/L (-2.0-2.0); Blood Gas Allen Test Pos; Blood Gas Sample Site Radial, right; Blood Gas Sample Type Arterial; Carboxyhemoglobin 1.9 %THgb (0.4-20.1); HGB O2 Sat 92.5 % (95-100); Ionized Calcium Level - ABG 1.2 mmol/L (1.1-1.4); Methemoglobin 0.8 % (0.4-1.5); Oxygen Saturation ABG 95.1; PO2 ABG 70.9 mmHg (80.0-100.0); Potassium Level - ABG 5.9 mmol/L (3.5-5.0); Total Hemoglobin 10.4 g/dL (14-18)
[2021-12-06 14:58] LABS: Anion Gap 18.1 (5-19); Blood Urea Nitrogen 40 mg/dL (6-20); Calcium 8.3 mg/dL (8.5-10.5); Carbon Dioxide 19 mmol/L (22-29); Chloride 107 mmol/L (98-107); Glomerular Filtration Rate 28.4 mL/min (90-130); Glucose 95 mg/dL (65-115); Osmolality Calculated 296 mOsm/kg (285-295); Potassium 6.1 mmol/L (3.5-5.1); Sodium 138 mmol/L (136-145)
[2021-12-06 16:14] VITALS: BP 132/101; PULSE 115; RESP 22; O2SAT 95
[2021-12-06 17:30] VITALS: PULSE 78; RESP 18; O2SAT 97
[2021-12-06 17:41] LABS: Troponin 5 6HR 37.34 ng/L (0-15); Troponin 5 6HR Delta -0.66 ng/L (0-12)
[2021-12-06] MEDS: FUROsemide 10 mg/mL SDV 4mL 40 MG IVP (18:21)
== END 2021-12-06 19:37 ==
PROVIDERS: Emergency Provider Emergency Medicine; PCP Internal Medicine
DX: R07.9 Chest pain, unspecified (principal); Z95.811 Presence of heart assist device; Z79.01 Long term (current) use of anticoagulants; Z95.1 Presence of aortocoronary bypass graft; Z20.822 Contact with and (suspected) exposure to COVID-19
CPT/HCPCS: 36415; 36600; 71045; 80048; 80051; 82330; 82805; 84484; 85025; 87426; 93005; 93308; 96374; 99283; J1940

== ENCOUNTER 2022-06-11 16:24 | Emergency (ER) | payer MEDICARE, SELFPAY ==
--- NOTE | 2022-06-11 16:33 | W.ED.SOB ---
Documented by User: Jeffery Whiteside DO 06/18/22 06:04 HPI - SOB/Dyspnea General: Chief Complaint: Weakness Stated Complaint: DIFFICULTY BREATHING/ WEAKNESS/ LVAD BLEEDING Time Seen by Provider: 06/11/22 16:32 Source: patient Mode of arrival: EMS History of Present Illness: HPI Narrative: 56-year-old male presents emergency room complaining of shortness of breath and weakness he also reports he has bleeding from his LVAD. He states he fell a little over a week ago and has had drainage from the entry site of his LVAD in his left lower quadrant ? scant amount of bloody drainage he has had increased abdominal discomfort increasing shortness of breath. He is not normally on oxygen. He is now requiring 2 L by nasal cannula. He is not having any further chest pain at this time. MD elicited complaint: shortness of breath and cough Pertinent past history: congestive heart failure and other (LVAD) Onset (ago): week(s) Timing: constant Severity: mild Exacerbating factors: lying flat, exertion and coughing Relieving factors: oxygen and upright position Known history of: congestive heart failure Associated symptoms: Deny abdominal pain, chest congestion, chest pain, cough, fever(s), nausea or vomiting Review of Systems Const: Denies: fever(s), chills, body aches, change in appetite, fatigue or malaise ENMT: Denies: throat pain, ear or mastoid pain, nasal discharge or nasal congestion Card: Reports: edema and swelling of feet/ankles; Denies: chest pain Resp: Reports: dyspnea and pain on inspiration; Denies: productive cough, non-productive cough or chest congestion GI: Denies: abdominal pain, nausea or vomiting : Denies: flank pain, difficulty urinating, dysuria or urinary frequency Skin/Breast: Denies: rash or pruritus PFSH ED PFSH: Medical History FH: cholecystectomy Heart disease High blood pressure Surgical History History of left ventricular assist device (LVAD) History of left ventricular assist device (LVAD) S/P triple vessel bypass Physical Exam HENMT: COMMON NORMALS: normocephalic HEAD & SCALP: normocephalic Eye: COMMON NORMALS: Equal, round and reactive pupils present, EOMs intact bilaterally and conjunctivae normal CONJUNCTIVA: Yes conjunctivae normal PUPIL: Yes Equal, round and reactive pupils present Resp: AUSCULTATION: no crackles OTHER: Obscured by mechanical sound of LVAD Cardio: HEART SOUNDS: Abnormal heart opening sounds other (Mechanical) OTHER: Mechanical heart sounds secondary to LVAD Course Vital Signs: Vital signs: Vital Signs Temperature 98.1 F 06/11/22 16:41 Pulse Rate 76 06/12/22 05:48 Respiratory Rate 18 06/12/22 05:48 Blood Pressure 116/86 06/12/22 05:48 Pulse Oximetry 96 06/12/22 05:48 Oxygen Delivery Me thod 06/11/22 23:30 MDM - SOB/Dyspnea Medical Decision Making Care signed out to Dr. Cain at change of shift. See final notes for diagnosis and disposition. Medical Records I reviewed the patient's medical records. Lab Data I reviewed the patient's lab results. : 06/11/22 17:25 06/11/22 17:17 Labs/Radiology: Radiology Impressions Chest X-Ray 06/11/22 16:40 IMPRESSION: 1. No acute findings. 2. Ventricular assist device stable in position . 3. Cardiac device left anterior chest in good position. 4. status post sternotomy Laboratory Results WBC 10.1 10^3/uL (4.0-10.0) H 06/11/22 17:25 Corrected WBC Cancelled 06/11/22 17:17 RBC 4.11 10^6/uL (4.1-5.3) 06/11/22 17:25 Hgb 11.7 g/dL (11.7-16.6) 06/11/22 17:25 Hct 36.1 % (42.0-52.0) L 06/11/22 17:25 MCV 87.8 fl (80-94) 06/11/22 17:25 MCH 28.5 pg (28.0-34.0) 06/11/22 17:25 MCHC 32.4 g/dL (30.0-36.0) 06/11/22 17:25 RDW 16.8 % (12.1-15.1) H 06/11/22 17:25 Plt Count 193 10^3/cmm (130-400) 06/11/22 17:25 MPV 11.0 fL (7.4-10.4) H 06/11/22 17:25 Gran % Cancelled 06/11/22 17:17 Neut % (Auto) 86.5 % 06/11/22 17:25 Lymph % (Auto) 5.5 % 06/11/22 17:25 [place] % (Auto) 5.9 % 06/11/22 17:25 Eos % (Auto) 1.3 % 06/11/22 17:25 Baso % (Auto) 0.3 % 06/11/22 17:25 Neut # (Auto) 8.73 10^3/uL (1.8-7.7) H 06/11/22 17:25 Lymph # (Auto) 0.6 10^3/uL (0.8-4.8) L 06/11/22 17:25 [place] # (Auto) 0.6 10^3/uL (0.2-0.9) 06/11/22 17:25 Eos # (Auto) 0.1 10^3/uL (0.0-0.8) 06/11/22 17:25 Baso # (Auto) 0.0 10^3/uL (0.0-0.1) 06/11/22 17:25 Absolute Gran (auto) Cancelled 06/11/22 17:17 Nucleated RBC % (auto) 0 % 06/11/22 17:25 Nucleated RBCs # 0.0 /100WBC 06/11/22 17:25 PT 27.00 SECONDS (12.1-14.9) H 06/11/22 17:25 INR 2.46 (0.8-1.2) H 06/11/22 17:25 APTT 40.6 SECONDS (23.9-36.7) H 06/11/22 17:25 Sodium 139 mmol/L (136-145) 06/11/22 17:17 Potassium 3.8 mmol/L (3.5-5.1) 06/11/22 17:17 Chloride 104 mmol/L (98-107) 06/11/22 17:17 Carbon Dioxide 19 mmol/L (22-29) L 06/11/22 17:17 Anion Gap 19.8 (5-19) H 06/11/22 17:17 BUN 34 mg/dL (6-20) H 06/11/22 17:17 Creatinine 2.0 mg/dL (0.7-1.2) H 06/11/22 17:17 GFR Calculation 35.0 mL/min (90-130) L 06/11/22 17:17 Glucose 83 mg/dL (65-115) 06/11/22 17:17 Calculated Osmolality 295 mOsm/kg (285-295) 06/11/22 17:17 Lactic Acid 0.7 mmol/L (0.5-2.2) 06/11/22 19:45 Calcium 8.3 mg/dL (8.5-10.5) L 06/11/22 17:17 Magnesium 1.5 mg/dL (1.7-2.3) L 06/11/22 17:17 Total Bilirubin 0.8 mg/dL (0.15-1.2) 06/11/22 17:17 AST 42 U/L (0-40) H 06/11/22 17:17 ALT 27 U/L (0-41) 06/11/22 17:17 Alkaline Phosphatase 92 IU/L (40-130) 06/11/22 17:17 Troponin T Baseline 25 ng/L (0-15) H 06/11/22 17:17 Troponin T 120 Minute 28.09 ng/L (0-15) H 06/11/22 19:20 Delta Troponin T 3.09 ABS# (0-10) 06/11/22 19:20 Troponin T Hi Sens 6Hr 27.77 ng/L (0-15) H 06/11/22 22:20 Troponin T Hi Sens 6Hr Delta 2.77 ng/L (0-12) 06/11/22 22:20 NT-Pro-B Natriuret Pep 24519 pg/mL (0-125) H 06/11/22 17:17 Total Protein 6.9 g/dL (6.6-8.7) 06/11/22 17:17 Albumin 3.7 g/dL (3.5-5.2) 06/11/22 17:17 Globulin 3.2 g/dL (1.3-4.6) 06/11/22 17:17 SARS-CoV-2 Ag (Rapid) Negative (Negative) 06/11/22 19:11 Discharge Plan Discharge Patient Disposition: Xfer Short-Term Hosp Clinical Impression: Acute on chronic combined systolic (congestive) and diastolic (congestive) heart failure, Left ventricular assist device present Condition: Stable Referrals: Virgie Little MD [Primary Care Provider] - Sign Out Sign Out Data: Patient Sign Out occurred on 06/11/22 at 18:42. Patient's care was discussed, and care was transferred from to Lei Cain MD. Coding Level of Care Code ED News Producer for Chg Fwd Exam Expanded Problem Focused Documented by User: Lei Cain MD 06/23/22 22:08 HPI - SOB/Dyspnea General: Chief Complaint: Weakness Stated Complaint: DIFFICULTY BREATHING/ WEAKNESS/ LVAD BLEEDING Time Seen by Provider: 06/11/22 16:32 PFSH ED PFSH: Medical History FH: cholecystectomy Heart disease High blood pressure Surgical History History of left ventricular assist device (LVAD) History of left ventricular assist device (LVAD) S/P triple vessel bypass Course Vital Signs: Vital signs: Vital Signs Temperature 98.1 F 06/11/22 16:41 Pulse Rate 76 06/12/22 05:48 Respiratory Rate 18 06/12/22 05:48 Blood Pressure 116/86 06/12/22 05:48 Pulse Oximetry 96 06/12/22 05:48 Oxygen Delivery Me thod 06/11/22 23:30 MDM - SOB/Dyspnea Medical Decision Making Care signed out to Dr. Cain at change of shift. See final notes for diagnosis and disposition. Care handoff received from Dr. Whiteside pending completion of evaluation. Labs notable for no leukocytosis, normal hemoglobin. INR 2.46. Metabolic panel with elevated creatinine which is baseline. Mild transaminitis is again noted. Delta troponin negative with elevated BNP above baseline. Patient intermittently requiring oxygen and becomes quite symptomatic with exertion. Given overall context and patient's comorbidities he requires transfer. Case was discussed with advanced heart failure physician Dr. Au at the hospital in [place] accepted the patient for transfer. Our usual local ambulance company refused to take the patient overnight citing crew fatigue despite my recommendation that patient be taken immediately. Dr Au agrees when I spoke to him earlier that the patient requires transfer end from evaluation however did not require air transportation as he is not in decompensated cardiogenic shock. I do not feel that air transport is appropriate at this time. We did attempt to call other local ambulance services however they were unable to transfer the patient. Patient eventually taken by ground EMS at approximately 5 am and left ED in satisfactory condition. Lei Cain MD Emergency Medicine Lab Data : 06/11/22 17:25 06/11/22 17:17 Labs/Radiology: Radiology Impressions Chest X-Ray 06/11/22 16:40 IMPRESSION: 1. No acute findings. 2. Ventricular assist device stable in position . 3. Cardiac device left anterior chest in good position. 4. status post sternotomy Laboratory Results WBC 10.1 10^3/uL (4.0-10.0) H 06/11/22 17:25 Corrected WBC Cancelled 06/11/22 17:17 RBC 4.11 10^6/uL (4.1-5.3) 06/11/22 17:25 Hgb 11.7 g/dL (11.7-16.6) 06/11/22 17:25 Hct 36.1 % (42.0-52.0) L 06/11/22 17:25 MCV 87.8 fl (80-94) 06/11/22 17:25 MCH 28.5 pg (28.0-34.0) 06/11/22 17:25 MCHC 32.4 g/dL (30.0-36.0) 06/11/22 17:25 RDW 16.8 % (12.1-15.1) H 06/11/22 17:25 Plt Count 193 10^3/cmm (130-400) 06/11/22 17:25 MPV 11.0 fL (7.4-10.4) H 06/11/22 17:25 Gran % Cancelled 06/11/22 17:17 Neut % (Auto) 86.5 % 06/11/22 17:25 Lymph % (Auto) 5.5 % 06/11/22 17:25 [place] % (Auto) 5.9 % 06/11/22 17:25 Eos % (Auto) 1.3 % 06/11/22 17:25 Baso % (Auto) 0.3 % 06/11/22 17:25 Neut # (Auto) 8.73 10^3/uL (1.8-7.7) H 06/11/22 17:25 Lymph # (Auto) 0.6 10^3/uL (0.8-4.8) L 06/11/22 17:25 [place] # (Auto) 0.6 10^3/uL (0.2-0.9) 06/11/22 17:25 Eos # (Auto) 0.1 10^3/uL (0.0-0.8) 06/11/22 17:25 Baso # (Auto) 0.0 10^3/uL (0.0-0.1) 06/11/22 17:25 Absolute Gran (auto) Cancelled 06/11/22 17:17 Nucleated RBC % (auto) 0 % 06/11/22 17:25 Nucleated RBCs # 0.0 /100WBC 06/11/22 17:25 PT 27.00 SECONDS (12.1-14.9) H 06/11/22 17:25 INR 2.46 (0.8-1.2) H 06/11/22 17:25 APTT 40.6 SECONDS (23.9-36.7) H 06/11/22 17:25 Sodium 139 mmol/L (136-145) 06/11/22 17:17 Potassium 3.8 mmol/L (3.5-5.1) 06/11/22 17:17 Chloride 104 mmol/L (98-107) 06/11/22 17:17 Carbon Dioxide 19 mmol/L (22-29) L 06/11/22 17:17 Anion Gap 19.8 (5-19) H 06/11/22 17:17 BUN 34 mg/dL (6-20) H 06/11/22 17:17 Creatinine 2.0 mg/dL (0.7-1.2) H 06/11/22 17:17 GFR Calculation 35.0 mL/min (90-130) L 06/11/22 17:17 Glucose 83 mg/dL (65-115) 06/11/22 17:17 Calculated Osmolality 295 mOsm/kg (285-295) 06/11/22 17:17 Lactic Acid 0.7 mmol/L (0.5-2.2) 06/11/22 19:45 Calcium 8.3 mg/dL (8.5-10.5) L 06/11/22 17:17 Magnesium 1.5 mg/dL (1.7-2.3) L 06/11/22 17:17 Total Bilirubin 0.8 mg/dL (0.15-1.2) 06/11/22 17:17 AST 42 U/L (0-40) H 06/11/22 17:17 ALT 27 U/L (0-41) 06/11/22 17:17 Alkaline Phosphatase 92 IU/L (40-130) 06/11/22 17:17 Troponin T Baseline 25 ng/L (0-15) H 06/11/22 17:17 Troponin T 120 Minute 28.09 ng/L (0-15) H 06/11/22 19:20 Delta Troponin T 3.09 ABS# (0-10) 06/11/22 19:20 Troponin T Hi Sens 6Hr 27.77 ng/L (0-15) H 06/11/22 22:20 Troponin T Hi Sens 6Hr Delta 2.77 ng/L (0-12) 06/11/22 22:20 NT-Pro-B Natriuret Pep 96029 pg/mL (0-125) H 06/11/22 17:17 Total Protein 6.9 g/dL (6.6-8.7) 06/11/22 17:17 Albumin 3.7 g/dL (3.5-5.2) 06/11/22 17:17 Globulin 3.2 g/dL (1.3-4.6) 06/11/22 17:17 SARS-CoV-2 Ag (Rapid) Negative (Negative) 06/11/22 19:11 Critical Care Time Critical Care Time: Critical Care Time: Yes Total Critical Care Time: 35 Attestation: The high probability of a clinically significant, sudden or life threatening deterioration of the patient's cardiopulmonary system(s) required my full and direct attention, intervention and personal management. The critical care time is as shown. This time is in addition to time spent performing any reported procedures but includes the following: [x] Data and vital sign review and interpretation [x] Patient assessment, examination and intervention [x] Documentation [x] Medication orders and management Discharge Plan Discharge Patient Disposition: Xfer Short-Term Hosp Clinical Impression: Acute on chronic combined systolic (congestive) and diastolic (congestive) heart failure, Left ventricular assist device present Condition: Stable Referrals: Virgie Little MD [Primary Care Provider] - Sign Out Sign Out Data: Patient Sign Out occurred on 06/11/22 at 18:42. Patient's care was discussed, and care was transferred from to Lei Cain MD. Coding Level of Care Code ED News Producer for Chg Fwd Exam Expanded Problem Focused
--- NOTE | 2022-06-11 16:40 | XRR_ITS ---
PROCEDURE INFORMATION: Exam: XR Chest Exam date and time: 06/11/2022 5:32 PM Age: 56 years old Clinical indication: Cough; Prior surgery; Surgery date: 6+ months; Surgery type: Open heart, pacemaker; Additional info: Dyspnea/cough TECHNIQUE: Imaging protocol: Radiologic exam of the chest. Views: 1 view. COMPARISON: CR XR chest 1V portable [id number] 12/06/2021 11:15 AM FINDINGS: Lungs: Unremarkable. No consolidation. Pleural spaces: Unremarkable. No pleural effusion. No pneumothorax. Heart/Mediastinum: Unremarkable. No cardiomegaly. Bones/joints: Metallic sternotomy wires are present. A ventricular assist device is seen in the left lower chest and upper abdomen stable since prior. Cardiac device left anterior chest bipolar leads are in good position. XR/XR chest 1V portable [id number] IMPRESSION: 1. No acute findings. 2. Ventricular assist device stable in position . 3. Cardiac device left anterior chest in good position. 4. status post sternotomy
[2022-06-11 16:41] VITALS: BP 152/107; PULSE 78; PULSE 87; RESP 16; RESP 17; TEMP 36.7; O2SAT 94; O2SAT 96; BMI 33.2
--- NOTE | 2022-06-11 16:41 | ECG_ITS ---
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 Measurements Intervals [place] Rate: 84 P: VA: QRS: -77 QRSD: 162 T: 23 QT: 453 QTc: 537 Interpretive Statements ATRIAL FIBRILLATION LEFT AXIS DEVIATION [QRS AXIS < -30] RIGHT BUNDLE BRANCH BLOCK [120+ ms QRS DURATION, UPRIGHT V1, 40+ ms S IN I/aVL/V4/V5/V6] POSSIBLE ANTEROSEPTAL MYOCARDIAL INFARCTION , OF INDETERMINATE AGE [30 ms Q WAVE IN V1-V4] Compared to ECG 12/06/2021 11:10:59 Left-axis deviation now present Atrial fibrillation no longer present Right-axis deviation no longer present Myocardial infarct finding still present Electronically Signed On 06-11-2022 17:34:19 CDT by Jamin Stokes M.D. [id number]
[2022-06-11 17:32] VITALS: BP 138/109; PULSE 83; RESP 15; O2SAT 95
[2022-06-11 17:55] LABS: Basophils % 0.3 %; Eosinophils # 0.1 10^3/uL (0.0-0.8); Eosinophils % 1.3 %; Hematocrit 36.1 % (42.0-52.0); Hemoglobin 11.7 g/dL (11.7-16.6); Lymphocytes # 0.6 10^3/uL (0.8-4.8); Lymphocytes % 5.5 %; Mean Corpuscular HGB Conc 32.4 g/dL (30.0-36.0); Mean Corpuscular Hemoglobin 28.5 pg (28.0-34.0); Mean Corpuscular Volume 87.8 fl (80-94); Monocytes # 0.6 10^3/uL (0.2-0.9); Monocytes % 5.9 %; Neutrophils # 8.73 10^3/uL (1.8-7.7); Neutrophils % 86.5 %; Nucleated Red Blood Cells % 0 %; Platelet Count 193 10^3/cmm (130-400); Red Blood Count 4.11 10^6/uL (4.1-5.3); Red Cell Distribution Width 16.8 % (12.1-15.1); White Blood Count 10.1 10^3/uL (4.0-10.0)
[2022-06-11 18:15] VITALS: BP 127/101; PULSE 95; RESP 15; O2SAT 95
[2022-06-11 18:24] LABS: Troponin(5th) Baseline 25 ng/L (0-15)
[2022-06-11 18:32] LABS: Albumin Level 3.7 g/dL (3.5-5.2); Alkaline Phosphatase 92 IU/L (40-130); Blood Urea Nitrogen 34 mg/dL (6-20); Calcium 8.3 mg/dL (8.5-10.5); Carbon Dioxide 19 mmol/L (22-29); Chloride 104 mmol/L (98-107); Globulin 3.2 g/dL (1.3-4.6); Glucose 83 mg/dL (65-115); Magnesium 1.5 mg/dL (1.7-2.3); NT Pro B Type Natriuretic Pept 23148 pg/mL (0-125); Osmolality Calculated 295 mOsm/kg (285-295); Sodium 139 mmol/L (136-145); Total Bilirubin 0.8 mg/dL (0.15-1.2); Total Protein 6.9 g/dL (6.6-8.7)
[2022-06-11 18:34] LABS: Alanine Aminotransferase 27 U/L (0-41); Anion Gap 19.8 (5-19); Aspartate Amino Transferase 42 U/L (0-40); Potassium 3.8 mmol/L (3.5-5.1)
--- NOTE | 2022-06-11 18:41 | ECG_ITS ---
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 Measurements Intervals [place] Rate: 88 P: -52 MS: 63 QRS: -89 QRSD: 139 T: -14 QT: 426 QTc: 518 Interpretive Statements SINUS RHYTHM WITH SHORT MS INTERVAL WITH OCCASIONAL SUPRAVENTRICULAR PREMATURE COMPLEXES RIGHT BUNDLE BRANCH BLOCK [120+ ms QRS DURATION, UPRIGHT V1, 40+ ms S IN I/aVL/V4/V5/V6] INFERIOR MYOCARDIAL INFARCTION , OF INDETERMINATE AGE [40+ ms Q WAVE AND/OR ST/T ABNORMALITY IN II/aVF] ANTEROLATERAL MYOCARDIAL INFARCTION , OF INDETERMINATE AGE [40+ ms Q WAVE IN I/aVL/V3-V6] Compared to ECG 06/11/2022 17:11:20 Short MS interval now present Atrial fibrillation no longer present Left-axis deviation no longer present Myocardial infarct finding still present Electronically Signed On 06-11-2022 23:25:31 CDT by Jamin Stokes M.D. [id number]
[2022-06-11 19:30] LABS: INR 2.46 (0.8-1.2)
[2022-06-11 19:31] LABS: Partial Thromboplastin Time 40.6 SECONDS (23.9-36.7)
[2022-06-11 19:51] LABS: SARS Covid-2 Antigen Negative (Negative)
[2022-06-11 20:03] LABS: Lactic Sepsis W/Reflex 0.7 mmol/L (0.5-2.2)
[2022-06-11 20:06] LABS: Troponin 5 2HR 28.09 ng/L (0-15)
[2022-06-11 20:07] LABS: Troponin 5 2HR Delta 3.09 ABS# (0-10)
[2022-06-11] MEDS: magnesium sulfate premix 2 GM/50 ML PIGGYBACK IV (21:13)
--- NOTE | 2022-06-11 22:41 | ECG_ITS ---
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 Measurements Intervals [place] Rate: 69 P: 111 IN: 282 QRS: 248 QRSD: 171 T: 67 QT: 540 QTc: 582 Interpretive Statements ELECTRONIC ATRIAL PACEMAKER RIGHT AXIS DEVIATION [QRS AXIS > 100] RIGHT BUNDLE BRANCH BLOCK [120+ ms QRS DURATION, UPRIGHT V1, 40+ ms S IN I/aVL/V4/V5/V6] ANTERIOR MYOCARDIAL INFARCTION , OF INDETERMINATE AGE [40+ ms Q WAVE AND/OR ST/T ABNORMALITY IN V3/V4] PROLONGED QT INTERVAL CRITICAL TEST RESULT Compared to ECG 06/11/2022 18:20:28 Right-axis deviation now present Prolonged QT interval now present Sinus rhythm no longer present Short IN interval no longer present Myocardial infarct finding still present Electronically Signed On 06-11-2022 23:22:24 CDT by Jamin Stokes M.D. [id number]
[2022-06-11 22:46] LABS: Troponin 5 6HR 27.77 ng/L (0-15)
[2022-06-11 22:47] LABS: Troponin 5 6HR Delta 2.77 ng/L (0-12)
[2022-06-11 23:30] VITALS: BP 133/98; PULSE 70; O2SAT 94
[2022-06-12] VITALS: BP 164/117; PULSE 70; O2SAT 94
[2022-06-12] MEDS: NON-FORMULARY MEDICATION (Melatonin 3 mg Tablet) 9 EACH PO (00:19)
[2022-06-12] MEDS: doxycycline 100 mg Tablet PO (00:19)
[2022-06-12] MEDS: levETIRAcetam 500 mg Tablet 1500 MG PO (00:19)
[2022-06-12] MEDS: pramipexole 0.25 mg Tablet 0.125 MG PO (00:19)
[2022-06-12] MEDS: sertraline 100 mg Tablet PO (00:20)
[2022-06-12] MEDS: atorvastatin 40 mg Tablet PO (00:20)
[2022-06-12] MEDS: quetiapine 100 mg Tablet PO (00:20)
[2022-06-12] MEDS: potassium chloride ER 20 mEq Tablet PO (01:02)
[2022-06-12 05:48] VITALS: BP 116/86; PULSE 76; RESP 18; O2SAT 96
== END 2022-06-12 05:45 | disposition short-term general hospital (02) ==
PROVIDERS: Family Medicine; Emergency Provider Emergency Medicine; PCP Internal Medicine
DX: I50.43 Acute on chronic combined systolic (congestive) and diastolic (congestive) heart failure (principal); Z95.811 Presence of heart assist device
CPT/HCPCS: 71045; 80053; 83605; 83735; 83880; 84484; 85025; 85610; 85730; 87426; 93005; 99285; J3475

== ENCOUNTER 2024-03-28 01:55 | Emergency (ER) | payer MEDICAID, SELFPAY ==
[2024-03-28 01:56] VITALS: BP 121/91; PULSE 75; RESP 16; TEMP 36.7; O2SAT 100; BMI 28.0
--- NOTE | 2024-03-28 02:16 | ED_ITS ---
HPI - General Adult General: Chief complaint: General Medical Stated complaint: LVAD malfunction Time Seen by Provider: 03/28/24 02:04 History of Present Illness: 58-year-old male with an LVAD. He was c alled by the LVAD company and told that he needed to come to [facility] in [place] due to an LVAD malfunction. Patient is essentially asymptomatic at this time. He does not have a ride, and called an ambulance for transport. [facility] refused to take the patient to [place], and instead took the patient to this facility. Associated symptoms: Deny chest pain, confusion, dyspnea, headache(s), nausea, rash, palpitations or vomiting Review of Systems Const: Denies: fever(s), chills or body aches Eyes: Denies: change in vision Card: Denies: chest pain or palpitations Resp: Denies: dyspnea, productive cough, non-productive cough or wheezing GI: Denies: abdominal pain, nausea, vomiting, diarrhea or hematochezia Skin/Breast: Denies: rash Neuro: Denies: headache(s), weakness in extremities, dizziness or confusion PFS ED PFSH: Medical History FH: cholecystectomy Heart disease High blood pressure Surgical History History of left ventricular assist device (LVAD) History of left ventricular assist device (LVAD) S/P triple vessel bypass Physical Exam Const: COMMON NORMALS: no acute distress GENERAL APPEARANCE: cooperative; not ill appearing and not frail appearing HENMT: COMMON NORMALS: normocephalic, atraumatic and Normal external nose present HEAD & SCALP: normocephalic and atraumatic FACE & SINUS: normal facial exam and face symmetric NOSE: Normal external nose present Eye: COMMON NORMALS: Equal, round and reactive pupils present and EOMs intact bilaterally PUPIL: Yes Equal, round and reactive pupils present Neck/C-Spine: GENERAL: Yes trachea midline Chest: CHEST: Yes Symmetrical chest wall rise Resp: COMMON NORMALS: normal respiratory effort, No retractions, No use of accessory muscles and clear to auscultation bilaterally AUSCULTATION: clear to auscultation bilaterally GI: COMMON NORMALS: Normal to inspection, nondistended, normoactive bowel sounds present Extremity: COMMON NORMALS: no pedal edema Neuro: URVASHI COMA SCALE: document GCS findings Urvashi coma scale eye opening: Spontaneous [place] coma scale verbal response: Orientated Urvashi coma scale motor response: Obey commands Urvashi coma scale total score: 15 SENSORY EXAM: Yes extremities (intact) Psych: COMMON NORMALS: speech normal SPEECH: Yes normal speech Skin: COMMON NORMALS: no rashes or lesions noted GENERAL SKIN EXAM: no rashes or lesions noted Course Vital Signs: Vital signs: Vital Signs Temperature 98.0 F 03/28/24 01:56 Pulse Rate 75 03/28/24 01:56 Respiratory Rate 16 03/28/24 01:56 Blood Pressure 121/91 03/28/24 01:56 Pulse Oximetry 100 03/28/24 01:56 Oxygen Delivery Me thod Room Air 03/28/24 01:56 MDM - General Adult Medical Decision Making I spoke with both the transfer physician and the LVAD team physician at [facility] in [place]. They agreed that the patient needs to come urgently to [place] for further investigation of his LVAD. They have agreed to ER to ER transfer. They asked for an INR on the patient in case he decompensates in the meantime. We will have ambulance is available later this morning for transport. He remained stable at this time. Blood pressure currently 1 over 6/87, heart rate 70, saturations 98% on room air with a respiratory rate of 16. No radiology studies performed this visit Discharge Plan Discharge Patient Disposition: Transfer to ED Clinical Impression: Complication involving left ventricular assist device Condition: Fair Prescriptions: No Action sodium bicarbonate 325 mg tablet 325 mg PO BID quetiapine 50 mg tablet 100 mg PO BEDTIME hydralazine 50 mg tablet 100 mg PO DAILY warfarin 5 mg tablet See Rx Instructions .ROUTE .COMPLEX Rx Instructions: 3.5 mg orally on Thursday 3 mg orally on , , , Thu, Sat, Sun atorvastatin 40 mg tablet 40 mg PO BEDTIME bumetanide 2 mg tablet See Rx Instructions .ROUTE .COMPLEX Rx Instructions: 2 mg orally in the morning / 1 mg orally in the evening levetiracetam [Keppra] 1,000 mg tablet 1,500 mg PO BEDTIME omeprazole 40 mg capsule,delayed release(DR/EC) 40 mg PO DAILY magnesium 250 mg tablet 250 mg PO BID Vascepa 1 gram capsule 2 gm PO BID doxycycline hyclate 100 mg capsule 100 mg PO BID sertraline 100 mg tablet 100 mg PO BEDTIME pramipexole 0.125 mg tablet 0.125 mg PO BEDTIME diazepam 5 mg tablet 5 mg PO DAILY PRN (Reason: Anxiety) multivitamin [Multiple Vitamins] Tablet 1 tab PO DAILY potassium chloride 20 mEq tablet,ER particles/crystals 20 meq PO BID ferrous sulfate 325 mg (65 mg iron) Tablet 325 mg PO BID levothyroxine 150 mcg tablet 150 mcg PO DAILY ergocalciferol (vitamin D2) [Vitamin D2] 1,250 mcg (50,000 unit) capsule 50,000 unit PO Q7D Rx Instructions: On Mondays melatonin 3 mg Tablet 9 mg PO BEDTIME sotalol 120 mg Tablet 120 mg PO DAILY isosorbide mononitrate 60 mg Tablet Extended Release 24 Hr 60 mg PO DAILY Flonase 50 mcg/actuation [place],Suspension 2 spray INTRANASAL DAILY PRN (Reason: Nasal Congestion) Rx Instructions: administer into each nostril Referrals: Virgie Little MD [Primary Care Provider] - Activity Restrictions/Additional Instructions: You will be transferred by ambulance to [facility] where further investigation of your LVAD device can occur. Coding Level of Care Code ED Blade Grader Operator for Melanie Mays
[2024-03-28 03:42] LABS: INR 3.39 (0.8-1.2)
--- NOTE | 2024-03-28 03:42 | PC.NURSE ---
pt lvad coordinator zheng solorzano [phone]
[2024-03-28 04:02] VITALS: BP 123/96; PULSE 70; RESP 21; O2SAT 100
--- NOTE | 2024-03-28 04:45 | PC.NURSE ---
Spoke with pt's LVAD coordinator about pt's LVAD making a chirping noise. Pt's coordinator stated to hit the silence button as long as the lights above the conjoined black and white wires are not lit up. Pt's coordinator stated that when those lights come on the pt will have to be switched to his wall unit that is located at the bedside.
[2024-03-28 04:47] VITALS: BP 125/101; PULSE 69; RESP 23; O2SAT 97
[2024-03-28 05:18] VITALS: BP 121/92; PULSE 70; RESP 24; O2SAT 99
[2024-03-28 06:24] VITALS: BP 112/87; PULSE 70; RESP 12; O2SAT 98
[2024-03-28 07:00] VITALS: BP 125/96; PULSE 71; RESP 17; O2SAT 97
== END 2024-03-28 07:42 ==
PROVIDERS: Emergency Provider Emergency Medicine; PCP Internal Medicine
DX: T82.598A Other mechanical complication of other cardiac and vascular devices and implants, initial encounter (principal); Z95.811 Presence of heart assist device; Z79.01 Long term (current) use of anticoagulants; Y71.1 Therapeutic (nonsurgical) and rehabilitative cardiovascular devices associated with adverse incidents
CPT/HCPCS: 85610; 99285

== ENCOUNTER 2024-04-13 16:42 | Outpatient (CLI) | payer SELFPAY ==
[2024-04-13 19:04] LABS: Basophils % 0.4 %; Eosinophils # 0.1 10^3/uL (0.0-0.8); Eosinophils % 1.5 %; Hematocrit 28.5 % (37-53); Lymphocytes # 0.6 10^3/uL (0.8-4.8); Mean Corpuscular HGB Conc 33.7 g/dL (30-55); Mean Corpuscular Hemoglobin 31.5 pg (27-33); Mean Corpuscular Volume 93.4 fl (82-101); Mean Platelet Volume 11.6 fL (7.4-10.4); Monocytes # 0.5 10^3/uL (0.2-0.9); Monocytes % 6.4 %; Neutrophils # 6.87 10^3/uL (1.8-7.7); Neutrophils % 84.2 %; Nucleated Red Blood Cells % 0 %; Platelet Count 114 10^3/cmm (157-399); Red Blood Count 3.05 10^6/uL (3.85-5.65); Red Cell Distribution Width 15.1 % (12.1-15.1); White Blood Count 8.15 10^3/uL (3.29-11.43)
[2024-04-13 19:22] LABS: Alanine Aminotransferase 21 U/L (0-41); Albumin Level 3.5 g/dL (3.5-5.2); Alkaline Phosphatase 74 U/L (40-130); Anion Gap 15.9 (5-19); Aspartate Amino Transferase 28 U/L (0-40); Blood Urea Nitrogen 45 mg/dL (6-20); C Reactive Protein 3.5 mg/L (0.0-4.9); Calcium 8.1 mg/dL (8.5-10.5); Carbon Dioxide 21 mmol/L (22-29); Chloride 104 mmol/L (98-107); Globulin 3.6 g/dL (1.3-4.6); Glomerular Filtration Rate 32.8 mL/min (90-130); Glucose 71 mg/dL (65-115); Osmolality Calculated 294 mOsm/kg (285-295); Potassium 3.9 mmol/L (3.5-5.1); Sodium 137 mmol/L (136-145); Total Bilirubin 0.4 mg/dL (0.15-1.2); Total Protein 7.1 g/dL (6.6-8.7)
== END 2024-04-13 16:43 | disposition home or self-care (01) ==
LOC: LAB 16:44
PROVIDERS: PCP Internal Medicine; Visit Provider Internal Medicine
DX: Z45.2 Encounter for adjustment and management of vascular access device (principal); T82.7XXA Infection and inflammatory reaction due to other cardiac and vascular devices, implants and grafts, initial encounter; X58.XXXA Exposure to other specified factors, initial encounter
CPT/HCPCS: 80053; 85025; 86140

== ENCOUNTER 2024-04-21 16:47 | Outpatient (CLI) | payer MEDICAID, SELFPAY ==
[2024-04-21 16:56] LABS: Basophils % 0.4 %; Eosinophils # 0.2 10^3/uL (0.0-0.8); Lymphocytes # 0.6 10^3/uL (0.8-4.8); Lymphocytes % 7.3 %; Mean Corpuscular HGB Conc 34.1 g/dL (30-55); Mean Corpuscular Volume 90.9 fl (82-101); Mean Platelet Volume 10.6 fL (7.4-10.4); Monocytes # 0.7 10^3/uL (0.2-0.9); Monocytes % 8.7 %; Nucleated Red Blood Cells % 0 %; Platelet Count 147 10^3/cmm (157-399); Red Blood Count 3.19 10^6/uL (3.85-5.65); Red Cell Distribution Width 15.7 % (12.1-15.1); White Blood Count 8.39 10^3/uL (3.29-11.43)
[2024-04-21 17:23] LABS: Alanine Aminotransferase 21 U/L (0-41); Albumin Level 3.3 g/dL (3.5-5.2); Alkaline Phosphatase 74 U/L (40-130); Anion Gap 18.8 (5-19); Aspartate Amino Transferase 27 U/L (0-40); Blood Urea Nitrogen 37 mg/dL (6-20); Calcium 7.3 mg/dL (8.5-10.5); Carbon Dioxide 19 mmol/L (22-29); Chloride 103 mmol/L (98-107); Creatine Phosphokinase 42 U/L (39-308); Globulin 3.5 g/dL (1.3-4.6); Glomerular Filtration Rate 28.1 mL/min (90-130); Glucose 85 mg/dL (65-115); Osmolality Calculated 292 mOsm/kg (285-295); Potassium 3.8 mmol/L (3.5-5.1); Sodium 137 mmol/L (136-145); Total Bilirubin 0.3 mg/dL (0.15-1.2); Total Protein 6.8 g/dL (6.6-8.7)
== END 2024-04-21 16:48 | disposition home or self-care (01) ==
PROVIDERS: PCP Internal Medicine; Visit Provider Pediatrics
DX: Z01.89 Encounter for other specified special examinations (principal)
CPT/HCPCS: 80053; 82550; 85025

== ENCOUNTER 2024-04-27 13:36 | Outpatient (CLI) | payer MEDICAID, SELFPAY ==
[2024-04-27 14:12] LABS: Basophils % 0.4 %; Eosinophils # 0.1 10^3/uL (0.0-0.8); Eosinophils % 1.4 %; Hematocrit 28.5 % (37-53); Lymphocytes # 0.5 10^3/uL (0.8-4.8); Lymphocytes % 6.3 %; Mean Corpuscular HGB Conc 33.7 g/dL (30-55); Mean Corpuscular Hemoglobin 31.2 pg (27-33); Mean Corpuscular Volume 92.5 fl (82-101); Mean Platelet Volume 11.2 fL (7.4-10.4); Monocytes # 0.4 10^3/uL (0.2-0.9); Monocytes % 5.6 %; Neutrophils # 6.59 10^3/uL (1.8-7.7); Neutrophils % 85.8 %; Nucleated Red Blood Cells % 0 %; Platelet Count 119 10^3/cmm (157-399); Red Blood Count 3.08 10^6/uL (3.85-5.65); Red Cell Distribution Width 15.1 % (12.1-15.1); White Blood Count 7.68 10^3/uL (3.29-11.43)
[2024-04-27 14:28] LABS: Alanine Aminotransferase 16 U/L (0-41); Alkaline Phosphatase 67 U/L (40-130); Anion Gap 15.7 (5-19); Aspartate Amino Transferase 20 U/L (0-40); Blood Urea Nitrogen 29 mg/dL (6-20); Calcium 7.5 mg/dL (8.5-10.5); Carbon Dioxide 22 mmol/L (22-29); Chloride 106 mmol/L (98-107); Globulin 2.8 g/dL (1.3-4.6); Glomerular Filtration Rate 36.9 mL/min (90-130); Glucose 86 mg/dL (65-115); Osmolality Calculated 295 mOsm/kg (285-295); Potassium 3.7 mmol/L (3.5-5.1); Sodium 140 mmol/L (136-145); Total Bilirubin 0.3 mg/dL (0.15-1.2); Total Protein 5.8 g/dL (6.6-8.7)
== END 2024-04-27 13:37 | disposition home or self-care (01) ==
LOC: LAB 13:36
PROVIDERS: PCP Internal Medicine; Visit Provider Pediatrics
DX: T82.7XXA Infection and inflammatory reaction due to other cardiac and vascular devices, implants and grafts, initial encounter (principal)
CPT/HCPCS: 80053; 85025; 86140

== ENCOUNTER 2024-05-04 12:48 | Outpatient (CLI) | payer MEDICAID, SELFPAY ==
[2024-05-04 13:17] LABS: Basophils % 0.3 %; Eosinophils # 0.1 10^3/uL (0.0-0.8); Eosinophils % 1.4 %; Hematocrit 28.8 % (37-53); Lymphocytes # 0.4 10^3/uL (0.8-4.8); Lymphocytes % 7.1 %; Mean Corpuscular HGB Conc 33.7 g/dL (30-55); Mean Corpuscular Hemoglobin 30.8 pg (27-33); Mean Corpuscular Volume 91.4 fl (82-101); Mean Platelet Volume 10.8 fL (7.4-10.4); Monocytes # 0.4 10^3/uL (0.2-0.9); Monocytes % 6.6 %; Neutrophils # 4.96 10^3/uL (1.8-7.7); Neutrophils % 84.1 %; Nucleated Red Blood Cells % 0 %; Platelet Count 98 10^3/cmm (157-399); Red Blood Count 3.15 10^6/uL (3.85-5.65); Red Cell Distribution Width 14.6 % (12.1-15.1)
[2024-05-04 13:36] LABS: Alanine Aminotransferase 13 U/L (0-41); Albumin Level 2.7 g/dL (3.5-5.2); Alkaline Phosphatase 73 U/L (40-130); Anion Gap 17.6 (5-19); Aspartate Amino Transferase 21 U/L (0-40); Blood Urea Nitrogen 32 mg/dL (6-20); C Reactive Protein 22.5 mg/L (0.0-4.9); Calcium 7.6 mg/dL (8.5-10.5); Carbon Dioxide 19 mmol/L (22-29); Chloride 103 mmol/L (98-107); Creatine Phosphokinase 36 U/L (39-308); Globulin 3.3 g/dL (1.3-4.6); Glomerular Filtration Rate 36.9 mL/min (90-130); Glucose 77 mg/dL (65-115); Osmolality Calculated 288 mOsm/kg (285-295); Potassium 3.6 mmol/L (3.5-5.1); Sodium 136 mmol/L (136-145); Total Bilirubin 0.7 mg/dL (0.15-1.2)
== END 2024-05-04 12:49 | disposition home or self-care (01) ==
PROVIDERS: PCP Internal Medicine; Visit Provider Internal Medicine
DX: T82.7XXA Infection and inflammatory reaction due to other cardiac and vascular devices, implants and grafts, initial encounter (principal)
CPT/HCPCS: 80053; 82550; 85025; 86140

== ENCOUNTER 2024-05-11 13:11 | Outpatient (CLI) | payer MEDICAID, SELFPAY ==
[2024-05-11 13:29] LABS: Basophils % 0.5 %; Eosinophils # 0.1 10^3/uL (0.0-0.8); Eosinophils % 1.9 %; Hematocrit 28.1 % (37-53); Lymphocytes # 0.5 10^3/uL (0.8-4.8); Lymphocytes % 7.3 %; Mean Corpuscular HGB Conc 33.8 g/dL (30-55); Mean Corpuscular Hemoglobin 30.7 pg (27-33); Mean Corpuscular Volume 90.9 fl (82-101); Mean Platelet Volume 11.2 fL (7.4-10.4); Monocytes # 0.4 10^3/uL (0.2-0.9); Monocytes % 6.5 %; Neutrophils # 5.21 10^3/uL (1.8-7.7); Nucleated Red Blood Cells % 0 %; Platelet Count 128 10^3/cmm (157-399); Red Blood Count 3.09 10^6/uL (3.85-5.65); Red Cell Distribution Width 14.6 % (12.1-15.1); White Blood Count 6.28 10^3/uL (3.29-11.43)
[2024-05-11 14:15] LABS: Alanine Aminotransferase 13 U/L (0-41); Albumin Level 2.8 g/dL (3.5-5.2); Alkaline Phosphatase 66 U/L (40-130); Anion Gap 17.3 (5-19); Aspartate Amino Transferase 23 U/L (0-40); Blood Urea Nitrogen 31 mg/dL (6-20); C Reactive Protein 3.2 mg/L (0.0-4.9); Calcium 7.7 mg/dL (8.5-10.5); Carbon Dioxide 20 mmol/L (22-29); Chloride 107 mmol/L (98-107); Creatine Phosphokinase 21 U/L (39-308); Globulin 3.1 g/dL (1.3-4.6); Glomerular Filtration Rate 39.2 mL/min (90-130); Glucose 82 mg/dL (65-115); Osmolality Calculated 296 mOsm/kg (285-295); Potassium 4.3 mmol/L (3.5-5.1); Sodium 140 mmol/L (136-145); Total Bilirubin 0.4 mg/dL (0.15-1.2); Total Protein 5.9 g/dL (6.6-8.7)
== END 2024-05-11 13:12 | disposition home or self-care (01) ==
PROVIDERS: PCP Internal Medicine; Visit Provider Internal Medicine
DX: T82.7XXA Infection and inflammatory reaction due to other cardiac and vascular devices, implants and grafts, initial encounter (principal)
CPT/HCPCS: 80053; 82550; 85025; 86140

== ENCOUNTER 2024-05-18 17:47 | Outpatient (CLI) | payer MEDICAID, SELFPAY ==
[2024-05-18 18:03] LABS: Basophils % 0.4 %; Eosinophils # 0.1 10^3/uL (0.0-0.8); Eosinophils % 1.8 %; Hematocrit 29.6 % (37-53); Lymphocytes # 0.4 10^3/uL (0.8-4.8); Lymphocytes % 7.7 %; Mean Corpuscular HGB Conc 33.8 g/dL (30-55); Mean Corpuscular Hemoglobin 30.4 pg (27-33); Mean Platelet Volume 11.3 fL (7.4-10.4); Monocytes # 0.4 10^3/uL (0.2-0.9); Monocytes % 6.6 %; Neutrophils # 4.65 10^3/uL (1.8-7.7); Neutrophils % 83.1 %; Nucleated Red Blood Cells % 0 %; Platelet Count 103 10^3/cmm (157-399); Red Blood Count 3.29 10^6/uL (3.85-5.65); Red Cell Distribution Width 14.5 % (12.1-15.1); White Blood Count 5.59 10^3/uL (3.29-11.43)
[2024-05-18 18:22] LABS: Alanine Aminotransferase 9 U/L (0-41); Alkaline Phosphatase 63 U/L (40-130); Aspartate Amino Transferase 27 U/L (0-40); Blood Urea Nitrogen 29 mg/dL (6-20); Calcium 7.7 mg/dL (8.5-10.5); Carbon Dioxide 20 mmol/L (22-29); Chloride 108 mmol/L (98-107); Creatine Phosphokinase 28 U/L (39-308); Glomerular Filtration Rate 34.7 mL/min (90-130); Glucose 126 mg/dL (65-115); Osmolality Calculated 293 mOsm/kg (285-295); Sodium 138 mmol/L (136-145); Total Bilirubin 0.5 mg/dL (0.15-1.2)
[2024-05-18 18:37] LABS: Anion Gap 13.6 (5-19); Potassium 3.6 mmol/L (3.5-5.1)
== END 2024-05-18 17:48 | disposition home or self-care (01) ==
LOC: LAB 17:49
PROVIDERS: PCP Internal Medicine; Visit Provider Internal Medicine
DX: Z01.89 Encounter for other specified special examinations (principal)
CPT/HCPCS: 80053; 82550; 85025; 86140

== ENCOUNTER 2024-07-13 11:17 | Emergency (ER) | payer MEDICARE, SELFPAY ==
[2024-07-13 11:18] VITALS: BP 118/94; PULSE 104; RESP 26; O2SAT 94
--- NOTE | 2024-07-13 11:20 | CT_ITS ---
WS: [id number] CT HEAD NONCONTRAST HISTORY: Possible stroke TECHNIQUE: Contiguous axial imaging performed through the brain in 2.5 mm imaging. Bone and soft tiss ue windows. Sagittal and coronal reformats reviewed. All CT scans at [facility] use at least one of these dose optimization techniques: automated exposure control; mA and/or kV adjustment per pa tient size (includes targeted exams where dose is matched to clinical indication); or iterative recon struction. DLP: 1306.18 mGy.cm COMPARISON: 03/30/2015 There is a large amount of intracranial blood. There is extensive extra-axial blood and intraventricu lar blood. The largest extra-axial collection appears to be subdural with a diameter of 2.0 cm along the LEFT posterior parietal region. Extensive acute blood along the interhemispheric falx. There is e xtensive edema throughout the brain. Marked intraventricular hemorrhage greatest involving the occipital horn the LEFT lateral ventricle. There is also blood extending into the RIGHT lateral ventricle, third ventricle and fourth ventricle. RIGHT midline shift is 12 mm at the level of the third ventricle. Parenchymal blood in the posterior LEFT parietal lobe may be the site of hemorrhage. No inferior descent of the cerebellar tonsils at this time. Prior RIGHT frontal lobe infarct. Paranasal sinuses: As visualized are clear. Mastoid air cells: Well pneumatized. Calvarium and scalp: Skull is intact with no soft tissue edema or swelling. CT/CT head wo con* [id number] IMPRESSION: 1. Large amount of intracranial blood. Largest amount of blood is extra-axial and in a subdural location over the LEFT cerebrum. Maximum diameter of the acu te hemorrhage is 2.0 cm. 2. Large amount of intraventricular hemorrhage including the lateral ventricle s, third and fourth ventricles. 3. 12 mm of RIGHT midline shift. 4. No inferior descent of the cerebellar tonsils. 5. Extensive LEFT cerebral edema. 6. Prior infarct RIGHT posterior frontal lobe. Notified Sherrie Gaffney MD at 07/13/2024 11:53 AM.
--- NOTE | 2024-07-13 11:21 | ECG_ITS ---
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 Measurements Intervals [place] Rate: 125 P: 0 [place]: 0 QRS: 270 QRSD: 146 T: 70 QT: 339 QTc: 490 Interpretive Statements ATRIAL FIBRILLATION WITH RAPID VENTRICULAR RESPONSE RIGHT BUNDLE BRANCH BLOCK [120+ ms QRS DURATION, UPRIGHT V1, 40+ ms S IN I/aVL/V4/V5/V6] LEFT POSTERIOR FASCICULAR BLOCK [QRS AXIS > 109, INFERIOR Q] Compared to ECG 06/11/2022 22:42:08 Left posterior fascicular block now present Atrial-paced complex(es) or rhythm no longer present Right-axis deviation no longer present Myocardial infarct finding no longer present Prolonged QT interval no longer present Electronically Signed On 07-14-2024 0:16:35 CDT by Marko Varela M.D. [id number]
--- NOTE | 2024-07-13 11:21 | XR_ITS ---
WS: [id number] PORTABLE CHEST HISTORY: Shortness of breath COMPARISON: 06/11/2022 Patient is intubated. Endotracheal tube ends above the aria. Nasogastric tube is not in the stomach . The nasogastric tube appears to end at the level of the aria. The proximal port is at the level o f the clavicular head. Ventricular cyst device is noted. Dual lead defibrillator/pacer. Pacer pads over the thorax. No lobar collapse. No pneumonia. Scarring at the LEFT lung base. No pleur al effusion or pneumothorax. Cardiac size: Normal. Mediastinum/Aorta: Mild widening of the mediastinum is probably related to supine position. Similar f indings on the prior exam. No osseous abnormality seen. XR/XR chest 1V portable [id number] IMPRESSION: 1. Nasogastric tube terminates in the mid esophagus and needs to be advanced. The tip is directly over the proximal RIGHT mainstem bronchus. Position needs t o be confirmed. 2. Endotracheal tube in good position. 3. VAD. 4. No pneumonia.
--- NOTE | 2024-07-13 11:27 | ED_ITS ---
HPI - Altered Mental Status 2 General: Chief Complaint: Neuro Symptoms/Deficit Stated Complaint: unresponsive/L-VAD Time Seen by Provider: 07/13/24 11:20 History of Present Illness: Is a 59-year-old man with history of LVAD placement, CHF, coronary artery disease, hypertension who presents to the emergency room after being found unresponsive. Unknown how long he had been down but it took at least an hour for the person who found him to gain interest to his home. He is completely unresponsive on presentation. He has known history of Coumadin therapy. No other history able to be obtained Related Data Home Medications Medication Instructions Recorded Confirmed icosapent ethyl 1 gram capsule 2 gm PO BID 11/25/19 07/13/24 (Vascepa) levetiracetam 1,000 mg tablet 1,000 mg PO TID 11/25/19 07/13/24 (Keppra) omeprazole 40 mg capsule,delayed 40 mg PO DAILY 11/25/19 07/13/24 release sodium bicarbonate 325 mg tablet 325 mg PO BID 11/25/19 07/13/24 sertraline 100 mg tablet 100 mg PO BEDTIME 09/21/20 07/13/24 levothyroxine 150 mcg tablet 150 mcg PO DAILY 09/22/20 07/13/24 potassium chloride 20 mEq 20 meq PO BID 09/22/20 07/13/24 tablet,extended release(part/cryst) isosorbide mononitrate 60 mg 60 mg PO DAILY 06/11/22 07/13/24 tablet,extended release 24 hr sotalol 120 mg tablet 120 mg PO DAILY 06/11/22 07/13/24 atorvastatin 80 mg tablet 80 mg PO QPM 07/13/24 07/13/24 bumetanide 1 mg tablet 1 mg PO DAILY 07/13/24 07/13/24 hydralazine 100 mg tablet 100 mg PO BID 07/13/24 07/13/24 warfarin 4 mg tablet 4 mg PO QPM 07/13/24 07/13/24 Allergies Allergy/AdvReac Type Severity Reaction Status Date / Time adhesive Allergy Unknown Verified 12/06/21 11:03 milrinone Allergy Unknown Verified 12/06/21 11:03 turkey Allergy Unknown Verified 12/06/21 11:03 vancomycin Allergy Unknown Verified 12/06/21 11:03 dermabond Allergy Unknown Uncoded 12/06/21 11:03 white fish Allergy Unknown Uncoded 12/06/21 11:03 Review of Systems 2 General: Reports: ROS unobtainable due to medical condition and ROS unobtainable due to mental status PFSH ED 2 PFSH: Medical History FH: cholecystectomy Heart disease High blood pressure Surgical History History of left ventricular assist device (LVAD) History of left ventricular assist device (LVAD) S/P triple vessel bypass Physical Exam 2 Narrative: General: Patient is completely unresponsive, shallow rapid breathing, tachycardic, Skin: Warm, dry Head: Normocephalic, I do not see any obvious signs of trauma Neck: Supple, trachea midline. Eye: Fixed dilated pupils. Nystagmus. Ears, nose, mouth and throat: Dry oral mucosa. Cardiovascular: Tachycardic, regular. Respiratory: Lungs are clear to auscultation, respirations are non-labored, breath sounds are equal, Symmetrical chest wall expansion. Gastrointestinal: Soft, Nontender, Non distended, Normal bowel sounds. Musculoskeletal: no deformity. Neurological: Patient is not moving any extremities. He has minimal toe movement with plantar reflex testing, upon intubation he has a very minimal gag reflex after drugs had been given before they were completely active. His eyes have fixed and dilated pupils. Slow bilateral horizontal nystagmus. Psychiatric: unable to assess. Course 2 Vital Signs: Vital signs: Vital Signs Pulse Rate 104 H 07/13/24 11:18 Respiratory Rate 31 H 07/13/24 12:19 Blood Pressure 118/94 07/13/24 11:18 Pulse Oximetry 94 07/13/24 11:18 Oxygen Delivery Me thod Room Air 07/13/24 11:18 Fraction of Inspir ed Oxygen 40 07/13/24 12:19 MDM - Altered Mental Status Medical Decision Making Medical decision making: Differential diagnosis for patient with focal neurologic deficit(s) includes but not limited to and based on the above HPI, review of systems and physical exam: ischemic stroke, hemorrhagic stroke and embolic stroke secondary to atrial fibrillation), TIA, Epps's palsey, metabolic encephalopathy with previous stroke. Orders placed to evaluate differential diagnosis based on the above differential, HPI and physical exam Patient taken immediately to CT after my exam. CT of the head: Large amount of left subdural hematoma over the entire left side. Large intra-axial collection of blood. This is on the left. Also intraventricular blood on the right. 12 mm right midline shift. No herniation. Extensive left cerebral edema. There are some old encephalomalacia on the right. This was reviewed and interpreted by myself the emergency room physician. I also reviewed the radiology report. Procedure: Intubation Time: 11:30 AM Confirmed: Patient, procedure, and site correct. Consent: , Emergent. Indication: Respiratory failure. Procedural sedation: Succinylcholine and etomidate . Monitoring: Cardiac, blood pressure, continuous pulse oximetry. Preparation: Pre oxygenated, Inline stabilization of cervical spine maintained, Ensured proper cuff inflation. Technique: Oral intubation: A 8 ET tube was inserted, glydescope, visualized cords and ett passing through cords. . Confirmation of tube placement: Bilateral chest rise, Positive color change indicated on end title CO2. Post procedure exam: Equal breath sounds. Complications: None. Performed by: Self. Total time: 10 minutes. EKG: Time 1206. Rate 125. Atrial fibrillation with rapid ventricular response, No ST-T changes, no ectopy, This was reviewed and interpreted by myself the ER physician At 1208. Lab Review: Laboratory results were reviewed and interpreted by myself the emergency room physician. Leukocytosis with a white count of 25,000. Hemoglobin is 14. Platelets are 203. BUN and creatinine are 16 and 4.4. Last measurement was 2 for his creatinine. Sodium is elevated at 147. AB.26/32/502. I reviewed the patient's medical record. Reexamination: Patient is now mechanically ventilated. Has been consistently tachycardic in the 120s to 130s. He has been having some gag reflex on the vent and sedation has had to be increased. Consultation: I spoke with the trauma team and have an accepting doctor, Dr. Smith. They recommend hypertonic saline and mannitol. Also agree with vitamin K and Kcentra. Assessment and plan: Intraparenchymal hemorrhage Subdural hematoma Intraventricular hemorrhage Chronic anticoagulation on Coumadin LVAD in place Unresponsive Cerebral edema Acute on chronic renal failure Lactic acidosis -Patient is being transferred to [facility] on the [address]. This is where he receives care for his LVAD. He needs trauma and neurosurgical evaluation for possible intervention. This is the closest facility that can manage both his LVAD and the neurosurgical needs. ?Kcentra, FFP, vitamin K, mannitol and hypertonic saline ordered. -Intubated secondary to lack of responsiveness. Airway protection. Sedated on a Versed drip at this time. - Discussed findings and plan with patient. Answered any questions. - All laboratory values were reviewed and interpreted personally by myself, the ER physician - All imaging was reviewed and interpreted personally by myself, the ER physician. - Evaluation and treatment of this problem were appropriate in the emergency setting -I spent a total of >75 minutes of critical care time managing the patient, independent of any other practitioner. -The time involved in the performance of separately reportable procedures was not counted towards critical care time. Lab Data 07/13/24 11:45 07/13/24 11:[address] 07/13/24 11:20 IMPRESSION: 1. Large amount of intracranial blood. Largest amount of blood is extra-axial and in a subdural location over the LEFT cerebrum. Maximum diameter of the acute hemorrhage is 2.0 cm. 2. Large amount of intraventricular hemorrhage including the lateral ventricles, third and fourth ventricles. 3. 12 mm of RIGHT midline shift. 4. No inferior descent of the cerebellar tonsils. 5. Extensive LEFT cerebral edema. 6. Prior infarct RIGHT posterior frontal lobe. Notified Sherrie Gaffney MD at 07/13/2024 11:53 AM. Laboratory Results WBC 24.86 10^3/uL (3.29-11.43) H 07/13/24 11:45 RBC 4.94 10^6/uL (3.85-5.65) 07/13/24 11:45 Hgb 14.40 g/dL (11.27-16.99) 07/13/24 11:45 Hct 43.9 % (37-53) 07/13/24 11:45 MCV 88.9 fl (82-101) 07/13/24 11:45 MCH 29.1 pg (27-33) 07/13/24 11:45 MCHC 32.8 g/dL (30-55) 07/13/24 11:45 RDW 17.3 % (12.1-15.1) H 07/13/24 11:45 Plt Count 203 10^3/cmm (157-399) 07/13/24 11:45 MPV 10.7 fL (7.4-10.4) H 07/13/24 11:45 Neut % (Auto) 85.3 % 07/13/24 11:45 Lymph % (Auto) 4.9 % 07/13/24 11:45 Hart % (Auto) 8.4 % 07/13/24 11:45 Eos % (Auto) 0.0 % 07/13/24 11:45 Baso % (Auto) 0.2 % 07/13/24 11:45 Neut # (Auto) 21.20 10^3/uL (1.8-7.7) H 07/13/24 11:45 Lymph # (Auto) 1.2 10^3/uL (0.8-4.8) 07/13/24 11:45 Hart # (Auto) 2.1 10^3/uL (0.2-0.9) H 07/13/24 11:45 Eos # (Auto) 0.0 10^3/uL (0.0-0.8) 07/13/24 11:45 Baso # (Auto) 0.0 10^3/uL (0.0-0.1) 07/13/24 11:45 Nucleated RBC % (auto) 0 % 07/13/24 11:45 Nucleated RBCs # 0.0 /100WBC 07/13/24 11:45 PT 26.20 SECONDS (12.1-14.9) H 07/13/24 11:45 INR 2.31 (0.8-1.2) H 07/13/24 11:45 APTT 43.0 SECONDS (23.9-36.7) H 07/13/24 11:45 Specimen Type Arterial 07/13/24 11:40 Sample Site Radial, right 07/13/24 11:40 ABG pH 7.27 (7.35-7.45) L 07/13/24 11:40 ABG pCO2 32.3 mmHg (35-45) L 07/13/24 11:40 ABG pO2 502.0 mmHg (80.0-100.0) H 07/13/24 11:40 ABG PO2/FiO2 Ratio 502 07/13/24 11:40 ABG HCO3 14.7 mmol/L (22-26) L 07/13/24 11:40 ABG O2 Saturation > 100.0 07/13/24 11:40 ABG Base Excess -11.1 mmol/L (-2.0-2.0) L 07/13/24 11:40 Kofi Test Pos 07/13/24 11:40 A-a O2 Gradient 21.0 mmHg (5-10) H 07/13/24 11:40 Hematocrit 43.8 % (42-52) 07/13/24 11:40 Hgb O2 Saturation 98.2 % (95-100) 07/13/24 11:40 Carboxyhemoglobin 0.7 %THgb (0.4-20.1) 07/13/24 11:40 Methemoglobin 1.3 % (0.4-1.5) 07/13/24 11:40 Total Hemoglobin 14.3 g/dL (14-18) 07/13/24 11:40 Sodium 149.0 mmol/L (131-143) H 07/13/24 11:40 Potassium 4.9 mmol/L (3.5-5.0) 07/13/24 11:40 Glucose 141.0 mg/dL (70-115) H 07/13/24 11:40 Ionized Calcium 1.2 mmol/L (1.1-1.4) 07/13/24 11:40 O2 Delivery Device Ambu 07/13/24 11:40 O2 Liters/Min 15.0 % 07/13/24 11:40 FiO2 100.0 % 07/13/24 11:40 Manager Of Tax ID Broma 07/13/24 11:40 Sodium 147 mmol/L (136-145) H 07/13/24 11:45 Potassium 5.1 mmol/L (3.5-5.1) 07/13/24 11:45 Chloride 109 mmol/L (98-107) H 07/13/24 11:45 Carbon Dioxide 13 mmol/L (22-29) L 07/13/24 11:45 Anion Gap 30.1 (5-19) H 07/13/24 11:45 BUN 60 mg/dL (6-20) H 07/13/24 11:45 Creatinine 4.4 mg/dL (0.7-1.2) H 07/13/24 11:45 GFR Calculation 13.9 mL/min (90-130) L 07/13/24 11:45 Glucose 138 mg/dL (65-115) H 07/13/24 11:45 Calculated Osmolality 323 mOsm/kg (285-295) H 07/13/24 11:45 Lactic Acid 4.7 mmol/L (0.5-2.2) H* 07/13/24 11:45 Calcium 9.1 mg/dL (8.5-10.5) 07/13/24 11:45 Total Bilirubin 1.1 mg/dL (0.15-1.2) 07/13/24 11:45 AST 452 U/L (0-40) H 07/13/24 11:45 ALT 318 U/L (0-41) H 07/13/24 11:45 Alkaline Phosphatase 120 U/L (40-130) 07/13/24 11:45 Ammonia 38 umol/L (16-60) 07/13/24 11:45 Troponin T Baseline 125 ng/L (0-15) H* 07/13/24 11:45 C-Reactive Protein 137.1 mg/L (0.0-4.9) H 07/13/24 11:45 Total Protein 8.4 g/dL (6.6-8.7) 07/13/24 11:45 Albumin 3.4 g/dL (3.5-5.2) L 07/13/24 11:45 Globulin 5.0 g/dL (1.3-4.6) H 07/13/24 11:45 Ethyl Alcohol < 10 mg/dL (0-10) 07/13/24 11:45 All radiology interpretation(s) finalized by discharge Discharge Plan Discharge Patient Disposition: Xfer Short-Term Hosp Clinical Impression: Intraparenchymal hemorrhage of brain, Acute subdural hematoma, Intraventricular hemorrhage, Midline shift of brain, Chronic anticoagulation, Left ventricular assist device present, Unresponsive state, Cerebral edema Condition: Stable Referrals: Virgie Little MD [Primary Care Provider] - Coding Level of Care Code ED Route Sales Specialist for Melanie Mays
[2024-07-13] MEDS: etomidate 2 mg/mL INJ SDV 10 mL 20 MG IVP (11:43)
[2024-07-13] MEDS: succinylcholine 20 mg/mL SDV 10mL 100 MG IVP (11:44)
[2024-07-13 11:53] LABS: Basophils % 0.2 %; Hematocrit 43.9 % (37-53); Lymphocytes # 1.2 10^3/uL (0.8-4.8); Lymphocytes % 4.9 %; Mean Corpuscular HGB Conc 32.8 g/dL (30-55); Mean Corpuscular Hemoglobin 29.1 pg (27-33); Mean Corpuscular Volume 88.9 fl (82-101); Mean Platelet Volume 10.7 fL (7.4-10.4); Monocytes # 2.1 10^3/uL (0.2-0.9); Monocytes % 8.4 %; Neutrophils % 85.3 %; Nucleated Red Blood Cells % 0 %; Platelet Count 203 10^3/cmm (157-399); Red Blood Count 4.94 10^6/uL (3.85-5.65); Red Cell Distribution Width 17.3 % (12.1-15.1); White Blood Count 24.86 10^3/uL (3.29-11.43)
[2024-07-13] MEDS: phytonadione (ADULT) 10 MG in sodium chloride 0.9% 50 ML 153 MG IV (11:54)
[2024-07-13 11:55] LABS: ABG PCO2 32.3 mmHg (35-45); ABG PH Result 7.27 (7.35-7.45); Arterial Blood Gas Hematocrit 43.8 % (42-52); Base Excess ABG -11.1 mmol/L (-2.0-2.0); Blood Gas Allen Test Pos; Blood Gas Operator Identificat BROMA; Blood Gas Sample Site Radial, right; Blood Gas Sample Type Arterial; Carboxyhemoglobin 0.7 %THgb (0.4-20.1); HCO3 ABG 14.7 mmol/L (22-26); HGB O2 Sat 98.2 % (95-100); Ionized Calcium Level - ABG 1.2 mmol/L (1.1-1.4); Methemoglobin 1.3 % (0.4-1.5); Oxygen Device AMBU; Oxygen Saturation ABG > 100.0; PO2 FiO2 Ratio Arterial Blood 502; Potassium Level - ABG 4.9 mmol/L (3.5-5.0); Total Hemoglobin 14.3 g/dL (14-18)
[2024-07-13] MEDS: midazolam hcl 100 MG/100 ML BAG IV ×2 (12:02→12:22)
[2024-07-13 12:09] LABS: INR 2.31 (0.8-1.2)
[2024-07-13 12:11] LABS: Ammonia 38 umol/L (16-60)
[2024-07-13 12:18] LABS: Troponin(5th) Baseline 125 ng/L (0-15)
[2024-07-13 12:19] VITALS: RESP 31
[2024-07-13 12:19] LABS: Alanine Aminotransferase 318 U/L (0-41); Albumin Level 3.4 g/dL (3.5-5.2); Alcohol Level < 10 mg/dL (0-10); Alkaline Phosphatase 120 U/L (40-130); Anion Gap 30.1 (5-19); Aspartate Amino Transferase 452 U/L (0-40); Blood Urea Nitrogen 60 mg/dL (6-20); C Reactive Protein 137.1 mg/L (0.0-4.9); Calcium 9.1 mg/dL (8.5-10.5); Carbon Dioxide 13 mmol/L (22-29); Chloride 109 mmol/L (98-107); Glomerular Filtration Rate 13.9 mL/min (90-130); Glucose 138 mg/dL (65-115); Lactic Sepsis W/Reflex 4.7 mmol/L (0.5-2.2); Osmolality Calculated 323 mOsm/kg (285-295); Potassium 5.1 mmol/L (3.5-5.1); Sodium 147 mmol/L (136-145); Total Bilirubin 1.1 mg/dL (0.15-1.2); Total Protein 8.4 g/dL (6.6-8.7)
--- NOTE | 2024-07-13 12:42 | PC.PHAR ---
Verified pt med list with MARCOS in [place].
[2024-07-13] MEDS: FLEXIBLE CONTAINER IV (13:04)
[2024-07-13] MEDS: SODIUM CHLORIDE 3% IV (13:04)
[2024-07-13] MEDS: [UNRECOGNIZED DRUG - MIXTURE] 8.4 UNIT IV (13:06)
--- NOTE | 2024-07-13 13:21 | ECG_ITS ---
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 Measurements Intervals [place] Rate: 120 P: 0 VT: 0 QRS: 257 QRSD: 151 T: 57 QT: 371 QTc: 525 Interpretive Statements ATRIAL FLUTTER/TACHYCARDIA WITH RAPID VENTRICULAR RESPONSE RIGHT AXIS DEVIATION [QRS AXIS > 100] RIGHT BUNDLE BRANCH BLOCK [120+ ms QRS DURATION, UPRIGHT V1, 40+ ms S IN I/aVL/V4/V5/V6] POSSIBLE ANTERIOR MYOCARDIAL INFARCTION , OF INDETERMINATE AGE [30 ms Q WAVE IN V3/V4, OR R < 0.2 mV IN V4] Compared to ECG 06/11/2022 22:42:08 Atrial-paced complex(es) or rhythm no longer present Prolonged QT interval no longer present Myocardial infarct finding still present Electronically Signed On 07-14-2024 0:22:19 CDT by Marko Varela M.D. [email or web address] [email or web address].[email or web address]/[id number]
--- NOTE | 2024-07-13 13:30 | PC.NURSE ---
UPON DISCHARGE, IT WAS DETERMINED THAT MACHINE ON ROOM HAD BEEN ACCIDENTALLY DISCHARGED WHICH ERASED ALL PATIENT VITAL ON THIS PATIENT. UPON ARRIVAL, PATIENT VITALS WERE WNL. PATIENT HAS HEART RATE, SPO2, AND RESPIRATIONS CHARTED ON TRANSFER PAPER WHEN REPORT WAS CALLED. UNABLE TO OBTAIN AND DOCUMENT BLOOD PRESSURE ON TRANSFER FORM DUE TO ATTEMPTING TO OBTAIN IV ACCESS ON PATIENT. THIS NURSE WAS AT BEDSIDE FOR ENTIRE PATIENT STAY. ALL ABNORMAL VITAL SIGNS REPORTED TO PROVIDER IN REAL TIME.
[2024-07-13 13:32] LABS: Creatine Phosphokinase 834 U/L (39-308)
[2024-07-13 13:37] LABS: NT Pro B Type Natriuretic Pept > 70000 pg/mL (0-125)
[2024-07-13 13:38] LABS: Reflex Lactate Order REFLEX LACTIC ORDERD
[2024-07-14 09:55] LABS: Bacillus cereus group Not Detected (NOT DETECT); Bacillus subtillis group Not Detected (NOT DETECT); Corynebacterium Not Detected (NOT DETECT); Cutibacterium acnes (P.acnes) Not Detected (NOT DETECT); Enterococcus Not Detected (NOT DETECT); Enterococcus faecalis Not Detected (NOT DETECT); Enterococcus faecium Not Detected (NOT DETECT); Lactobacillus species Not Detected (NOT DETECT); Listeria Not Detected (NOT DETECT); Listeria monocytogenes Not Detected (NOT DETECT); Micrococcus Not Detected (NOT DETECT); Pan Candida Not Detected (NOT DETECT); Pan Gram-Negative Not Detected (NOT DETECT); Staphylococcus epidermidis Detected (NOT DETECT); Staphylococcus lugdunensis Not Detected (NOT DETECT); Staphylococcus species Detected (NOT DETECT); Streptococcus agalactiae Not Detected (NOT DETECT); Streptococcus anginosus group Not Detected (NOT DETECT); Streptococcus pneumoniae Not Detected (NOT DETECT); Streptococcus pyogenes Not Detected (NOT DETECT); Streptococcus species Not Detected (NOT DETECT); mecA Detected (NOT DETECT); mecC Not Detected (NOT DETECT)
== END 2024-07-13 13:39 | disposition short-term general hospital (02) ==
PROVIDERS: Emergency Provider Emergency Medicine; PCP Internal Medicine
DX: I61.8 Other nontraumatic intracerebral hemorrhage (principal); I62.01 Nontraumatic acute subdural hemorrhage; I61.5 Nontraumatic intracerebral hemorrhage, intraventricular; Z79.01 Long term (current) use of anticoagulants; Z95.811 Presence of heart assist device; R40.4 Transient alteration of awareness; G93.6 Cerebral edema; I48.20 Chronic atrial fibrillation, unspecified; I11.0 Hypertensive heart disease with heart failure; I50.9 Heart failure, unspecified; I25.10 Atherosclerotic heart disease of native coronary artery without angina pectoris
CPT/HCPCS: 31500; 36600; 70450; 71045; 80051; 80053; 80307; 82140; 82330; 82550; 82805; 83605; 83880; 84484; 85025; 85610; 85730; 86140; 86850; 86900; 87040; 87077; 87150; 87186; 87205; 93005; 94002; 94799; 96365; 96367; 96375; 99291; 99292; J0330; J2250; J3430; J3490; J7131; J7168; J7799